=== PATIENT | female | born 1940 | race Caucasian/White ===

== ENCOUNTER 2020-04-04 08:57 | Outpatient (REF) | payer MEDICARE, SELFPAY ==
--- NOTE | 2020-04-04 09:28 | XR_ITS ---
EXAMINATION: XR KNEE, RIGHT CLINICAL INFORMATION: Pain COMPARISON: None TECHNIQUE: AP standing view of both knees and sunrise and lateral view of the right knee of the right knee. FINDINGS: The bones are osteopenic. There is a right knee replacement in satisfactory position. No fracture or dislocation is seen. There is a soft tissue ossification seen on the lateral view adjacent to the inferior and superior articular surfaces of the patella. There is no joint effusion. Standing AP view of the left knee demonstrates degenerative changes at the lateral femoral tibial joint. IMPRESSION: Osteopenia. Right knee replacement. Soft tissue ossifications seen on the lateral view adjacent to the inferior and superior articular surfaces of the patella.
== END 2020-04-04 08:58 | disposition home or self-care (01) ==
LOC: HO.XRAY 08:57
PROVIDERS: PCP Hospitalist; Visit Provider Orthopaedic Surgery
DX: T84.032A Mechanical loosening of internal right knee prosthetic joint, initial encounter (principal)
CPT/HCPCS: 73562; 99204

== ENCOUNTER → 2020-04-15 12:50 | Outpatient (BNVA) | payer MEDICARE, SELFPAY | PROVIDERS: PCP Hospitalist; Referring Provider Hospitalist; Visit Provider Orthopaedic Surgery | DX: Z76.89 Persons encountering health services in other specified circumstances (principal) ==

== ENCOUNTER → 2020-05-12 12:52 | Outpatient (BNVA) | payer MEDICARE, SELFPAY | PROVIDERS: PCP Hospitalist; Referring Provider Hospitalist; Visit Provider Orthopaedic Surgery | DX: T84.032D Mechanical loosening of internal right knee prosthetic joint, subsequent encounter (principal) | CPT/HCPCS: 20610; 99212 ==

== ENCOUNTER 2020-06-09 07:56 | Day surgery (SDC) | payer MEDICARE, SELFPAY ==
[2020-06-03 11:53] VITALS: BMI 25.0
--- NOTE | 2020-06-05 08:44 | MHC.SHP ---
Pre-Procedural Eval Section A The patient is an INPATIENT: No The History & Physical has been completed within 30 days and I have reviewed it.: Yes Section B Chief Complaint: Cataracts Left Eye Allergies: Allergies Allergy/AdvReac Type Severity Reaction Status Date / Time No Known Allergies Allergy Verified 05/12/20 13:37 Plan Diagnosis/Plan: Unchanged Patient has been examined and remains a candidate for the planned procedure
--- NOTE | 2020-06-06 13:34 | P.CONAN_ITS ---
Documented by User: Zenaida Lamar 06/06/20 13:35 HPI - Anesthesia Eval Consult details Narrative: 80yo F for Cataract Extraction PCP cleared No prev cataract [facility] Past Medical History Medical History (Updated 06/03/20 @ 11:49 by Loni Melissa) Mechanical loosening of internal right knee prosthetic joint Recent urinary tract infection Right knee pain Surgical History Surgical History (Updated 06/03/20 @ 11:49 by Loni Melissa) History of right knee surgery History of total right hip arthroplasty Social History Social History (Updated 06/03/20 @ 11:52 by Loni Melissa) Alcohol intake: current Alcohol intake frequency: a few times a month Alcohol type: wine Smoking Status: Former smoker Smoking Quit Date: 1962 Advance Directives: No Advance Directives Information Provided: No Advance Directives on File: No Meds Allergies Allergy/AdvReac Type Severity Reaction Status Date / Time No Known Allergies Allergy Verified 05/12/20 13:37 Home Medications Medication Instructions Recorded Confirmed Type acetaminophen 650 mg PO Q6H PRN 06/03/20 06/03/20 History sulfamethoxazole-trimethoprim 1 tab PO BID 06/03/20 06/03/20 History Exam Exam Date and Time: June 06, 2020 1334 Height,Weight and Vital Signs: Height 5 ft 6 in Weight 70.307 kg Assessment and Plan Assessment Anesthesia Assessment: Chart Reviewed Documented by User: Kate King 06/09/20 08:34 [facility] Past Medical History Medical History (Updated 06/03/20 @ 11:49 by Loni Melissa) Mechanical loosening of internal right knee prosthetic joint Recent urinary tract infection Right knee pain Surgical History Surgical History (Updated 06/03/20 @ 11:49 by Loni Melissa) History of right knee surgery History of total right hip arthroplasty Social History Social History (Updated 06/03/20 @ 11:52 by Loni Melissa) Alcohol intake: current Alcohol intake frequency: a few times a month Alcohol type: wine Smoking Status: Former smoker Smoking Quit Date: 1962 Advance Directives: No Advance Directives Information Provided: No Advance Directives on File: No Meds Allergies Allergy/AdvReac Type Severity Reaction Status Date / Time No Known Allergies Allergy Verified 05/12/20 13:37 Home Medications Medication Instructions Recorded Confirmed Type acetaminophen 650 mg PO Q6H PRN 06/03/20 06/03/20 History sulfamethoxazole-trimethoprim 1 tab PO BID 06/03/20 06/03/20 History Exam Airway Mallampati Class: I TM Dist: >3cm Neck ROM: Full Heart: RRR Lungs: CTa Bl Assessment and Plan Assessment Anesthesia Assessment: Anesthesia Plan Discussed and Chart Reviewed Final Anesthetic Review NPO: Yes ASA Class: II Final Preanesthetic Review: Meds/Allgs Chart Reviewed and Consent Obtained/Reviewed Patient Risk: Low Procedure Risk: Low Anesthetic Plan Anesthetic Plan: MAC: Disposition: Standard PACU
[2020-06-09 08:41] VITALS: BP 139/61; PULSE 74; RESP 16; TEMP 36.3; O2SAT 98
[2020-06-09] MEDS: Tetracaine HCl/PF 0.5% Oph Sol 4 ML DROPS 1 DROP EYE-LEFT (08:46)
[2020-06-09] MEDS: Tropicamide 1 % Ophth Sol 3 ML BTL 1 DROP EYE-LEFT ×3 (08:49→08:56)
[2020-06-09] MEDS: Lactated Ringers 500 ML 50 ML IV (08:50)
[2020-06-09] MEDS: Phenylephrine HCL 2.5% Oph SoL 2 ML BOTTLE 1 DROP EYE-LEFT ×3 (08:51→08:59)
[2020-06-09 09:59] VITALS: BP 154/64; PULSE 67; RESP 16; TEMP 36.3; O2SAT 99
--- NOTE | 2020-06-09 09:59 | HO.PNOPHT ---
Ophthalmology Procedure Procedure Date of Service: 06/09/20 Ophthalmology Viscoelastic: Healon Duet Dual Pack Pro Ophthalmology Lenses: TECALEXANDER [id number] (23) Procedure Notes: PREOPERATIVE DIAGNOSIS: Decreased visual acuity left eye secondary to cataract POSTOPERATIVE DIAGNOSIS: Same PROCEDURE: Left cataract extraction with intraocular lens insertion SURGEON: Jose Tanner M.D. ANESTHESIA: Topical/MAC ESTIMATED BLOOD LOSS: None COMPLICATIONS: None After obtaining informed consent, the patient was brought to the operation room suite and placed in the supine position. After adequate sedation per anesthesia, topical drops of Tetracaine were given to the left eye. The eye was then prepped and draped in the usual sterile fashion. The operating room microscope was then positioned over the operative eye and a lid speculum placed. A paracentesis was created. Viscoelastic was then instilled into the anterior chamber. A three plane incision was then created temporally, utilizing a 2.85 mm keratome. Capsulotomy forceps were then utilized to create a circular tear capsulotomy. Hydrodissection and hydrodelineation were carried out until adequate mobilization of the nucleus occurred. Phacoemulsification was then utilized to remove the dense central nucleus followed by removal of the cortical material utilizing the automated aspiration irrigation unit. Viscoat elastic was instilled into the posterior capsular bag followed by placement of a posterior chamber intraocular lens without difficulty. The residual Viscoat elastic was then removed utilizing the automated IA machine. The wound was check and found to be watertight. The patient tolerated the procedure well and the lid speculum was removed. Intracameral injection of Vigamox 0.1 mL followed by a subtenon injection of Kenalog-40 0.2 mL were administered. The patient will be seen in the a.m.
--- NOTE | 2020-06-09 10:01 | HO.POSTANES ---
Post Anesthesia Evaluation Post Anesthesia Evaluation Vital Signs: Vital Signs Temp Pulse Resp BP Pulse Ox 06/09/20 08:41 97.3 F 74 16 139/61 98 Anesthesia: Monitored Mental Status: Awake Pain Control: Satisfactory Nausea/Vomiting: None Hydration: Adequate Anesthesia-Related Issues: No Anes. Related Issues
== END 2020-06-09 10:20 | disposition home or self-care (01) ==
PROVIDERS: PCP Hospitalist; Visit Provider Ophthalmology
PROC: (CPT 66985; principal; 2020-06-09 09:40)
DX: H25.12 Age-related nuclear cataract, left eye (principal); H54.7 Unspecified visual loss; Z96.641 Presence of right artificial hip joint; Z79.899 Other long term (current) drug therapy; Z87.891 Personal history of nicotine dependence
CPT/HCPCS: 66984; J2250; J3010; J3300; V2632

== ENCOUNTER 2020-07-03 12:46 | Outpatient (REF) | payer MEDICARE, SELFPAY ==
[2020-07-03 14:52] LABS: C Reactive Protein 0.08 mg/dL (< or = 0.50)
[2020-07-03 15:43] LABS: Erythrocyte Sedimentation Rate 8 MM/HR (0-20)
== END 2020-07-03 12:47 | disposition home or self-care (01) ==
LOC: HO.10HDL 12:46
PROVIDERS: Visit Provider Orthopaedic Surgery
DX: Z01.818 Encounter for other preprocedural examination (principal); T84.032A Mechanical loosening of internal right knee prosthetic joint, initial encounter
CPT/HCPCS: 36415; 85652; 86140; 99212

== ENCOUNTER 2020-07-07 07:24 | Day surgery (SDC) | payer MEDICARE, SELFPAY ==
[2020-07-01 11:39] VITALS: BMI 25.8
--- NOTE | 2020-07-04 08:02 | MHC.SHP ---
Pre-Procedural Eval Section A The patient is an INPATIENT: No The History & Physical has been completed within 30 days and I have reviewed it.: Yes Section B Chief Complaint: cataract right eye Allergies: Allergies Allergy/AdvReac Type Severity Reaction Status Date / Time No Known Allergies Allergy Verified 06/30/20 09:42 Plan Diagnosis/Plan: Unchanged I have reviewed the history and physical and performed a pertinent physical examination on my patient. No changes have occurred unless specified.
--- NOTE | 2020-07-04 10:10 | HO.ANESPROP2 ---
Documented by User: Zenaida Lamar 07/04/20 10:12 HPI - Anesthesia Eval Consult details Narrative: 80yo F for Cataract Extraction IOL Insertion,right PCP cleared 1st eye 06/09/20 Fent50, Midaz 2 Pt for total joint this week [facility] Past Medical History Medical History Mechanical loosening of internal right knee prosthetic joint Recent urinary tract infection Right knee pain Surgical History Surgical History Cataract extraction status of left eye History of right knee surgery History of total right hip arthroplasty Social History Social History Alcohol intake: current Alcohol intake frequency: a few times a month Alcohol type: wine Smoking Status: Former smoker Smoking Quit Date: 57 years ago Second Hand Smoke Exposure: No Advance Directives: No Advance Directives Information Provided: No Advance Directives on File: No Meds Allergies Allergy/AdvReac Type Severity Reaction Status Date / Time No Known Allergies Allergy Verified 06/30/20 09:42 Home Medications Medication Instructions Recorded Confirmed Type acetaminophen 650 mg PO Q6H PRN 06/03/20 06/30/20 History Exam Exam Date and Time: July 04, 2020 1010 Height,Weight and Vital Signs: Height 5 ft 6 in Weight 72.575 kg Assessment and Plan Assessment Anesthesia Assessment: Chart Reviewed Documented by User: Ruby Shaikh 07/07/20 08:12 [facility] Past Medical History Medical History Mechanical loosening of internal right knee prosthetic joint Recent urinary tract infection Right knee pain Surgical History Surgical History Cataract extraction status of left eye History of right knee surgery History of total right hip arthroplasty Social History Social History Alcohol intake: current Alcohol intake frequency: a few times a month Alcohol type: wine Smoking Status: Former smoker Smoking Quit Date: 57 years ago Second Hand Smoke Exposure: No Advance Directives: No Advance Directives Information Provided: No Advance Directives on File: No Meds Allergies Allergy/AdvReac Type Severity Reaction Status Date / Time No Known Allergies Allergy Verified 06/30/20 09:42 Home Medications Medication Instructions Recorded Confirmed Type acetaminophen 650 mg PO Q6H PRN 06/03/20 06/30/20 History Exam Airway Mallampati Class: III TM Dist: >3cm Neck ROM: Full Loose/Missing/Broken Teeth: No Heart: RRR Lungs: CTA Assessment and Plan Assessment Anesthesia Assessment: Anesthesia Plan Discussed Final Anesthetic Review NPO: Yes ASA Class: II Final Preanesthetic Review: Meds/Allgs Chart Reviewed, Consent Obtained/Reviewed and Anes Risks/Benef Reviewed Patient Risk: Low Procedure Risk: Low Anesthetic Plan Anesthetic Plan: MAC: Disposition: Standard PACU
[2020-07-07 07:59] VITALS: BP 130/109; RESP 16; TEMP 36.3; O2SAT 99
[2020-07-07] MEDS: Lactated Ringers 500 ML 50 ML IV (08:26)
[2020-07-07] MEDS: Tetracaine HCl/PF 0.5% Oph Sol 4 ML DROPS 1 DROP EYE-RIGHT (08:27)
[2020-07-07] MEDS: Tropicamide 1 % Ophth Sol 3 ML BTL 1 DROP EYE-RIGHT ×3 (08:31→08:42)
[2020-07-07] MEDS: Phenylephrine HCL 2.5% Oph SoL 2 ML BOTTLE 1 DROP EYE-RIGHT ×3 (08:34→08:45)
[2020-07-07 09:43] VITALS: BP 166/65; PULSE 68; RESP 16; TEMP 36.1; O2SAT 98
--- NOTE | 2020-07-07 09:44 | HO.PNOPHT ---
Ophthalmology Procedure Procedure Date of Service: 07/07/20 Ophthalmology Viscoelastic: Healon Duet Dual Pack Pro Ophthalmology Lenses: TECNIS [id number] (22.5 Sulcus) Procedure Notes: PREOPERATIVE DIAGNOSIS: Decreased visual acuity right eye secondary to cataract POSTOPERATIVE DIAGNOSIS: Same PROCEDURE: Right cataract extraction with intraocular lens insertion & CTR SURGEON: Jose Tanner M.D. ANESTHESIA: Topical/MAC ESTIMATED BLOOD LOSS: None COMPLICATIONS: Zonular Dehisence After obtaining informed consent, the patient was brought to the operating room suite and placed in the supine position. After adequate sedation per anesthesia, topical drops of Tetracaine were given to the right eye. The eye was then prepped and draped in the usual sterile fashion. The operating room microscope was then positioned over the operative eye and a lid speculum placed. A paracentesis was created. Viscoelastic was then instilled into the anterior chamber. A three plane incision was then created temporally, utilizing a 2.85 mm keratome. Capsulotomy forceps were then utilized to create a circular tear capsulotomy. Hydrodissection and hydrodelineation were carried out until adequate mobilization of the nucleus occurred. Phacoemulsification was then utilized to remove the dense central nucleus, zonular dehiscence was nored reqiring placement of a Capsular Tension Ring. Upod completion of further Phacoemulsification to remove the nucleus removal of the cortical material utilizing the automated aspiration rrigation unit was completed .Viscoelastic was instilled into the posterior capsular bag followed by placement of a posterior chamber intraocular lens without difficulty into the sulcus The residual Viscoelastic was then removed utilizing the automated IA machine. The wound was checked and found to be watertight. The patient tolerated the procedure well and the lid speculum was removed.Miochol was instilled. Intracameral injection of Vigamox 0.1 mL followed by a subtenon injection of Kenalog-40 0.2 mL were administered. The patient will be seen in the a.m.
--- NOTE | 2020-07-08 14:54 | HO.POSTANES ---
Post Anesthesia Evaluation Post Anesthesia Evaluation Anesthesia: Monitored Mental Status: Awake Pain Control: Satisfactory Nausea/Vomiting: None Hydration: Adequate Anesthesia-Related Issues: No Anes. Related Issues
== END 2020-07-07 23:59 | disposition home or self-care (01) ==
LOC: HO.SSS 07:25 → HO.SSSA 10:56
PROVIDERS: PCP Hospitalist; Visit Provider Ophthalmology
PROC: (CPT 66985; principal; 2020-07-07 09:20)
DX: H25.11 Age-related nuclear cataract, right eye (principal); H27.8 Other specified disorders of lens; Z87.891 Personal history of nicotine dependence; Z96.641 Presence of right artificial hip joint
CPT/HCPCS: 66982; J3010; J3300; V2632

== ENCOUNTER 2020-07-22 08:17 | Day surgery (SDC) | payer MEDICARE, SELFPAY ==
--- NOTE | 2020-06-30 | ECG_ITS ---
Test Reason : CP Blood Pressure : / mmHG Vent. Rate : 072 BPM Atrial Rate : 072 BPM P-R Int : 156 ms QRS Dur : 130 ms QT Int : 448 ms P-R-T Axes : 070 023 100 degrees QTc Int : 490 ms Normal sinus rhythm Left bundle branch block Abnormal ECG No previous ECGs available Referred By: Zenaida Lamar Electronically Signed By:Mark Adams
[2020-06-30 10:03] VITALS: BP 168/78; PULSE 87; RESP 20; O2SAT 99; BMI 25.8
--- NOTE | 2020-06-30 10:17 | P.CONAN_ITS ---
HPI - Anesthesia Eval Consult details Narrative: 80yo F for R TKA Pending: PCP clearance Rescheduled d/t COVID policy [facility] Past Medical History Medical History Mechanical loosening of internal right knee prosthetic joint Recent urinary tract infection Right knee pain Family History Family history of problems with anesthesia: No Surgical History Surgical History Cataract extraction status of left eye History of right knee surgery History of total right hip arthroplasty History of Problems with Anesthesia: No Social History Social History Alcohol intake: current Alcohol intake frequency: a few times a month Alcohol type: wine Smoking Status: Former smoker Smoking Quit Date: 57 years ago Second Hand Smoke Exposure: No Advance Directives: No Advance Directives Information Provided: No Advance Directives on File: No Narrative Narrative: No recent illness No CP/SOB with >4 mets, only limited by knee pain. Meds Allergies Allergy/AdvReac Type Severity Reaction Status Date / Time No Known Allergies Allergy Verified 07/07/20 08:20 Home Medications Medication Instructions Recorded Confirmed Type acetaminophen 650 mg PO Q6H PRN 06/03/20 06/30/20 History Exam Exam Date and Time: June 30, 2020 1017 Height,Weight and Vital Signs: Height 5 ft 6 in Weight 72.575 kg Last Vital Signs Pulse 87 06/30/20 10:03 Resp 20 06/30/20 10:03 BP 168/78 H 06/30/20 10:03 Pulse Ox 99 06/30/20 10:03 Airway Mallampati Class: II TM Dist: >3cm Neck ROM: Full Loose/Missing/Broken Teeth: No Heart: RRR Lungs: CTAB Assessment and Plan Assessment Anesthesia Assessment: Anesthesia Plan Discussed and PAT Visit
[2020-06-30 11:53] LABS: MANUAL DIFF FLAG NO
[2020-06-30 11:55] LABS: Basophils Percent Auto 0.5 % (0-2); Eosinophils Absolute Auto 0.3 X10*3/uL (0.0-0.4); Hematocrit 37.1 % (37-47); Imm Gran Abs Auto 0.01 X10*3/uL (0.00-0.03); Imm Gran Pct Auto 0.2 % (0.0-0.4); Lymphocytes Absolute Auto 2.3 X10*3/uL (1.2-4.9); Mean Corpuscular HGB Conc 32.3 g/dl (31.0-35.0); Mean Corpuscular Volume 101.9 fL (80-98); Mean Platelet Volume 9.6 fL (9.4-12.3); Monocytes Absolute Auto 0.7 X10*3/uL (0.1-1.2); Monocytes Percent Auto 11.2 % (2-11); Neutrophils Absolute Auto 2.5 X10*3/uL (2.0-8.3); Neutrophils Percent Auto 43.1 % (45-73); Platelet Count 303 X10*3/uL (160-400); Red Blood Count 3.64 X10*6/uL (4.20-5.50); White Blood Count 5.8 X10*3/uL (4.8-10.8)
[2020-06-30 12:21] LABS: Anion Gap 12 (12-20); Blood Urea Nitrogen 18 mg/dL (9-16); Calcium 8.9 mg/dL (8.4-10.2); Carbon Dioxide 28 mmol/L (22-29); Chloride 100 mmol/L (96-108); Estimated Glomerular Filt Rate > 60; Glucose Random 102 mg/dL (60-115); Potassium 4.7 mmol/l (3.3-5.1); Sodium 135 mmol/L (135-145)
[2020-06-30 15:40] LABS: MRSA Nasal PCR NEGATIVE (Negative); SA Nasal PCR NEGATIVE (Negative)
--- NOTE | 2020-07-21 08:50 | HO.ANESPROP2 ---
Documented by User: Zenaida Ramosney 07/21/20 08:54 HPI - Anesthesia Eval Consult details Narrative: 80yo F for R TKA Seen in PAT 06/30/20 PCP cleared Rescheduled d/t COVID policy [facility] Past Medical History Medical History Mechanical loosening of internal right knee prosthetic joint Recent urinary tract infection Right knee pain Surgical History Surgical History Cataract extraction status of left eye History of right knee surgery History of total right hip arthroplasty Social History Social History Are you a primary career development manager to a significant other at home: No Do you presently have visiting nurse or other home services: No Alcohol intake: current Alcohol intake frequency: a few times a month Alcohol type: wine Smoking Status: Former smoker Smoking Quit Date: 57 yrs ago Patient Interested in Nicotine Replacement: No Second Hand Smoke Exposure: No Use of substances other than those prescribed or required for medical reasons: No Have you been hit, kicked, punched, or otherwise hurt by someone within the past year? If so, by whom?: No Bahai Healthcare Practices: Denominational Advance Directives: No Advance Directives Information Provided: No Advance Directives on File: No Recently lost weight without trying: No Meds Allergies Allergy/AdvReac Type Severity Reaction Status Date / Time No Known Allergies Allergy Verified 07/22/20 07:47 Home Medications Medication Instructions Recorded Confirmed Type acetaminophen 650 mg PO Q6H PRN 06/03/20 06/30/20 History Exam Exam Date and Time: July 21, 2020 0850 Height,Weight and Vital Signs: Height 5 ft 6 in Weight 72.575 kg Last Vital Signs Pulse 87 06/30/20 10:03 Resp 20 06/30/20 10:03 BP 168/78 H 06/30/20 10:03 Pulse Ox 99 06/30/20 10:03 Pertinent Lab Results Pertinent Lab Results: Laboratory Tests 06/30/20 06/30/20 06/30/20 11:15 11:15 11:15 WBC 5.8 RBC 3.64 L Hgb 12.0 Hct 37.1 MCV 101.9 H MCH 33.0 MCHC 32.3 RDW 12.0 Plt Count 303 MPV 9.6 Immature Gran % (Auto) 0.2 Neut % (Auto) 43.1 L Lymph % (Auto) 40.0 [place] % (Auto) 11.2 H Eos % (Auto) 5.0 H Baso % (Auto) 0.5 Lymph # (Auto) 2.3 [place] # (Auto) 0.7 Eos # (Auto) 0.3 Baso # (Auto) 0.0 Abs Immat Gran (auto) 0.01 Absolute Neuts (auto) 2.5 Absolute Nucleated RBC 0.000 Nucleated RBC % (auto) 0.0 Sodium 135 Potassium 4.7 Chloride 100 Carbon Dioxide 28 Anion Gap 12 BUN 18 H Creatinine 0.65 Estim Creat Clear Calc 68.0 Estimated GFR > 60 Random Glucose 102 Calcium 8.9 Nasal Screen MRSA (PCR) Nasal S. aureus Screen Nasal MRSA/S.aureus Interp Blood Type B Positive Antibody Screen NEGATIVE 06/30/20 Unknown WBC RBC Hgb Hct MCV MCH MCHC RDW Plt Count MPV Immature Gran % (Auto) Neut % (Auto) Lymph % (Auto) [place] % (Auto) Eos % (Auto) Baso % (Auto) Lymph # (Auto) [place] # (Auto) Eos # (Auto) Baso # (Auto) Abs Immat Gran (auto) Absolute Neuts (auto) Absolute Nucleated RBC Nucleated RBC % (auto) Sodium Potassium Chloride Carbon Dioxide Anion Gap BUN Creatinine Estim Creat Clear Calc Estimated GFR Random Glucose Calcium Nasal Screen MRSA (PCR) NEGATIVE Nasal S. aureus Screen NEGATIVE Nasal MRSA/S.aureus Interp SEE NOTE Blood Type Antibody Screen Narrative Narrative: EKG 06/30/20 Normal sinus rhythm Left bundle branch block Abnormal ECG No previous ECGs available Assessment and Plan Assessment Anesthesia Assessment: Chart Reviewed (Pt seen in PAT 06/30/20. Surgery rescheduled d/t hospital covid policy.) Documented by User: Alan Oneill MD 07/22/20 09:55 [facility] Past Medical History Medical History Mechanical loosening of internal right knee prosthetic joint Recent urinary tract infection Right knee pain Surgical History Surgical History Cataract extraction status of left eye History of right knee surgery History of total right hip arthroplasty Social History Social History Are you a primary career development manager to a significant other at home: No Do you presently have visiting nurse or other home services: No Alcohol intake: current Alcohol intake frequency: a few times a month Alcohol type: wine Smoking Status: Former smoker Smoking Quit Date: 57 yrs ago Patient Interested in Nicotine Replacement: No Second Hand Smoke Exposure: No Use of substances other than those prescribed or required for medical reasons: No Have you been hit, kicked, punched, or otherwise hurt by someone within the past year? If so, by whom?: No Bahai Healthcare Practices: Denominational Advance Directives: No Advance Directives Information Provided: No Advance Directives on File: No Recently lost weight without trying: No Meds Allergies Allergy/AdvReac Type Severity Reaction Status Date / Time No Known Allergies Allergy Verified 07/22/20 07:47 Home Medications Medication Instructions Recorded Confirmed Type acetaminophen 650 mg PO Q6H PRN 06/03/20 06/30/20 History Exam Airway Mallampati Class: II TM Dist: >3cm Neck ROM: Full Loose/Missing/Broken Teeth: No Heart: RRR Lungs: Nonlabored Assessment and Plan Assessment Anesthesia Assessment: Anesthesia Plan Discussed, PAT Visit and Chart Reviewed Final Anesthetic Review NPO: Yes ASA Class: III Final Preanesthetic Review: Meds/Allgs Chart Reviewed, Consent Obtained/Reviewed and Anes Risks/Benef Reviewed Patient Risk: Intermediate Procedure Risk: Intermediate Anesthetic Plan Anesthetic Plan: GA, MAC:, Spinal (Start with spinal iso bupi w/epi, convert to GA if procedure >180 mins; pt agrees) and Regional Block Disposition: Standard PACU
[2020-07-22] VITALS (13 sets, daily range): BP systolic 125–169; BP diastolic 48–71; PULSE 55–77; RESP 16–19; TEMP 36.2–36.9; O2SAT 96–100
[2020-07-22 08:13] LABS: COVID-19 Test Negative (Negative); IDNOW Serial# 9DD0AD1C
[2020-07-22] MEDS: Lactated Ringers 1,000 ML 100 ML IVCONT (08:44)
[2020-07-22] MEDS: ceFAZolin Sodium/Dextrose,Iso 2 GM/50 ML PIGGYBACK IV ×2 (08:44→16:50)
[2020-07-22] MEDS: Gabapentin 600 MG TABLET PO (08:44)
--- NOTE | 2020-07-22 09:46 | MHC.SHP ---
Pre-Procedural Eval Section A The patient is an INPATIENT: No Changes since office visit: Yes Patient answered all questions; No Cold of Flu in the past 2 weeks, No New Medical Problems and No Changes in Medication The History & Physical has been completed within 30 days and I have reviewed it.: Yes Section B Chief Complaint: s/p rt knee revision Allergies: Allergies Allergy/AdvReac Type Severity Reaction Status Date / Time No Known Allergies Allergy Verified 07/22/20 07:47 Plan I have reviewed the history and physical and performed a pertinent physical examination on my patient. No changes have occurred unless specified.
--- NOTE | 2020-07-22 12:42 | XR_ITS ---
EXAMINATION: XR KNEE, RIGHT CLINICAL INFORMATION: Revision right total knee COMPARISON: Right knee 04/04/2020 TECHNIQUE: 5 views of the right knee. FINDINGS: There is a resection of old right prosthesis with insertion of new total right knee prosthesis with the prosthetic components in satisfactory alignment. Immediate postop changes are visualized. There is gas and fluid in the subareolar bursa and surgical cristal along the anterior knee from surgery. XR/XR knee RT 2V IMPRESSION: Interval removal of all right knee prosthesis with insertion of new prosthesis with long stems along the distal femur and proximal tibia. Immediate postop changes visualized as described above.
--- NOTE | 2020-07-22 13:45 | P.BOP_ITS ---
Brief Operative Note Date of Service: 07/22/20 Pre-op diagnosis: right knee prosthetic loosening Post-op diagnosis: same Procedure: revision right knee arthroplsty Implants: styker triathalon revision system 5 femur with 5mm distal and posterior medial augments and 10 mm lateral distal and posterior 4 tibia with 5mm augments medial and lateral 19 mm TS poly Surgeon: Sanford Sy MD Anesthesia: regional and spinal Veterans' Counselor: Orlin Cummings Estimated blood loss (mL): 150 Tourniquet time (min): 120 IV fluids (mL): 1,000 Urine output (mL): 0 Pathology: none sent Condition: stable Disposition: PACU
[2020-07-22] MEDS: oxyCODONE HCl Immed Release 5 MG TABLET 2.5 MG PO (14:10)
[2020-07-22] MEDS: HYDROmorphone HCl 0.5 MG/0.5 ML SYRINGE 0.25 MG IVPUSH ×2 (14:43→23:15)
--- NOTE | 2020-07-22 15:32 | XR_ITS ---
EXAMINATION: XR KNEE, RIGHT CLINICAL INFORMATION: Total knee arthroplasty COMPARISON: Standing AP knees and right knee radiographs 04/04/2020. TECHNIQUE: 5 views of the right knee. FINDINGS: Patient status post knee arthroplasty with hinged prosthesis. The hardware is intact. There is no fracture or dislocation or destructive process. There is subcutaneous emphysema and overlying skin cristal as expected. XR/XR knee RT 2V IMPRESSION: Status post right knee arthroplasty.
[2020-07-22] MEDS: 0.9 % Sodium Chloride Flush 3 ML SYRINGE IVFLUSH ×2 (16:47→23:21)
[2020-07-22] MEDS: Dextrose 5 % and 0.45 % NaCl 1,000 ML 80 ML IVCONT (16:49)
--- NOTE | 2020-07-22 17:28 | PM.IMCN ---
History of Present Illness Data of Consult Service Date: 07/22/20 Requesting physician: Sanford Sy Primary Care Provider: Unknown Physician HPI Reason for consult: Medical management 80-year-old female with no significant past medical history has right knee surgeries in 2011 and but still has right knee pain so came to the hospital because of elective knee surgery. She says that she was walking with a cane and having balance problem because of the knee pain so decided to go for further surgery option. She is feeling better except she says that she has some knee pain. . Review of Systems Review of Systems: Denies any chest pain or shortness of breath or abdominal pain or fever or chills or nausea or vomiting or abdominal pain or weakness or numbness or any rash or urinary complaints. [facility] Medical History Mechanical loosening of internal right knee prosthetic joint Recent urinary tract infection Right knee pain Pertinent family history: She lives alone, denies any pertinent family history. Surgical History Cataract extraction status of left eye History of right knee surgery History of total right hip arthroplasty Social History Alcohol intake: current Alcohol intake frequency: a few times a month Alcohol type: wine Smoking Status: Former smoker Second Hand Smoke Exposure: No service: No Meds Allergies Allergy/AdvReac Type Severity Reaction Status Date / Time No Known Allergies Allergy Verified 07/22/20 07:47 Home Medications Medication Instructions Recorded Confirmed Type acetaminophen 650 mg PO Q6H PRN 06/03/20 06/30/20 History Physical Exam Vital Signs and Narrative: Vital Signs: Last Vital Signs Temp 98.5 F 07/22/20 15:00 Pulse 55 07/22/20 15:00 Resp 16 07/22/20 15:00 BP 125/48 L 07/22/20 15:00 Pulse Ox 96 07/22/20 15:00 Body Mass Index 25.8 Physical exam: Constitutional: Not in acute distress Cvs: [id number], [id number] , no murmur res: clear to auscultation ,no rhonchii or wheezing abd: no rebound or guarding ,nt, bs present. ext pulses present , no cyanosis neuro: axo3 , nonfocal. Results Labs CBC and Chem 7: 07/23/20 06:15 07/23/20 06:15 Labs: Laboratory Results - last 24 hr 07/22/20 07/22/20 07:35 07:50 COVID-19 ([facility]) Negative COVID-19 Clin Com See Note Blood Type B Positive Antibody Screen NEGATIVE Imaging Radiologist's Impressions: Impressions Knee X-Ray 07/22/20 12:42 IMPRESSION: Interval removal of all right knee prosthesis with insertion of new prosthesis with long stems along the distal femur and proximal tibia. Immediate postop changes visualized as described above. Knee X-Ray 07/22/20 15:32 IMPRESSION: Status post right knee arthroplasty. Assessment and Plan (1) Mechanical loosening of internal right knee prosthetic joint: Status: Acute (2) Right knee pain: Status: Acute 1. Mechanical loosening of right knee prosthetic joint: Status post surgery day1 Management as per primary team 2. Alcohol use: Will add thiamine folic acid, CIWA 3. EKG abnormal: Lbbb: Patient is totally in symptomatic denies any chest pain or shortness of breath or weakness Will add echo for the morning.
[2020-07-22] MEDS: Thiamine HCL 100 MG TABLET PO (17:53)
[2020-07-22] MEDS: Folic Acid 1 MG TABLET PO (17:53)
--- NOTE | 2020-07-22 18:13 | OP_ITS ---
SURGEON: Sanford Sy MD INDICATIONS: 80-year-old active woman with ongoing right knee pain with evidence of mechanical loosening and no evidence of infection. She was consented to undergo revision arthroplasty. PREOPERATIVE DIAGNOSIS: Mechanical loosening, right prosthetic knee. POSTOPERATIVE DIAGNOSIS: Mechanical loosening, right prosthetic knee. PROCEDURE PERFORMED: Revision right knee arthroplasty. ESTIMATED BLOOD LOSS: 150 mL. COMPLICATIONS: None known. ANESTHESIA: Regional and spinal. ASSISTANTS: 1. RADHA Alex. 2. Pranay Brewster. SPECIMENS: FLUIDS: 1 L. PROCEDURE IN DETAIL: The patient was brought to the operating room, placed in the supine position and prepped and draped in standard sterile fashion. Time-out was called to identify proper site, proper procedure, proper surgeon. IV antibiotics per weight was administered. I began by exsanguinating the limb and insufflating tourniquet to 200 mmHg. I then made a standard midline incision down the retinaculum and performed a medial parapatellar arthrotomy. She had a very stiff retinaculum and care was taken to avoid avulsion of the tibial tubercle. She had ossification in the patellar tendon and also medially along the medial tibial plateau. These were excised and I piecemeal removed scar tissue to slowly flex up the knee and translate the patella laterally. Once I was able to do this, I examined the tibia, this appeared to have micromotion, but was not grossly loose; and the femur, there was no evidence of loosening, but there was no way to revise the tibia in this situation without removing the femur and so I used the flexible osteotome to circumferentially loosen up the cement bone interface under the prosthesis and was able to do this with minimal bone loss. The most prominent bone loss was posterolateral. Prior to this, I removed the polyethylene. I then was able to access the tibia and used a small flexible osteotome to slowly remove this and was able to do so with relatively minor bone loss most prominent being posteromedial and a small rent in the anterolateral cortex with no cavitary defects and good bone stock. I irrigated copiously both the femur and the tibia, removed all excess bone. I then reamed the tibia to a depth of 150 mm and made a clean-up cut for 5 mm augments. I then sized a size 4 tibia and provisionally placed this and then turned my attention to the femur. I reamed to a 17, depth of 150 mm and then placed my distal femoral cutting guide and lying up with the medial epicondyle, made my distal cut with 10 mm augment laterally and 5 medially. I then placed my chamfer cutting guide and made my anterior chamfer cut, both of which were took minimal to no bone. I then made my posterior medial cut, which there was again about 10 mm augment required and a 5 mm posteriorly on the lateral side. Once this was done, I placed my box and made my box cut. I placed my provisional femur with the augments and was happy with the stability and tracking using a 16 mm insert. At this point, I took a flat plate to assess my height and to verify that the joint line was not raised. I was happy with the radiographs and therefore I prepared my tibia and femur by copious irrigation and then put my implants together on the back table while 2 bags of Palacos bone cement was max. I then cemented in the femur and tibia in standard fashion while applying axial compression. Once the cement was dry, I trialed a 16 and 19. I was happiest with the 19. My final 19 TS insert was placed. Of note, I assessed the patella. There was prominent parapatellar bone ectopic that had grown about the lateral 3rd of the patella. This was removed and a small lateral release was performed. Again, I took the knee through range of motion I was happy with the extension, flexion, stability and tracking. I then copiously irrigated for 3 minutes with iodine and placed my local TXA and performed a layered closure with cristal on the skin. The patient was then awakened from sedation and brought to recovery room in stable condition. There were no known complications. GRAFT OR IMPLANTS: Manpreet Triathlon Revision System with 5 femur with 5 mm medial, distal, and posterior augments and 10 mm distal and posterior lateral augments with a 4 tibia with 5 mm medial and lateral augments, and a 19 mm poly, 2 bags of Palacos bone cement. Sanford Sy MD NE/MODL / [id number]
[2020-07-22] MEDS: Celecoxib 200 MG CAPSULE PO (20:21)
--- NOTE | 2020-07-22 22:09 | PC.NURSE ---
patient bladder scanned for 527 ml, straight cath placed at 2145, emptied straight cath for 600 ml.
[2020-07-23] VITALS (8 sets, daily range): BP systolic 145–186; BP diastolic 66–82; PULSE 50–86; RESP 17–19; TEMP 36.6–37.6; O2SAT 94–98
[2020-07-23] MEDS: Dextrose 5 % and 0.45 % NaCl 1,000 ML 80 ML IVCONT (04:23)
[2020-07-23] MEDS: HYDROmorphone HCl 0.5 MG/0.5 ML SYRINGE 0.25 MG IVPUSH ×3 (04:25→19:32)
[2020-07-23 06:26] LABS: MANUAL DIFF FLAG NO
--- NOTE | 2020-07-23 06:35 | PC.NURSE ---
bladder scanned pt at 0600 for 403 ml, straight cath'd pt for 500 ml at 0630.
[2020-07-23 06:53] LABS: Basophils Percent Auto 0.3 % (0-2); Eosinophils Absolute Auto 0.1 X10*3/uL (0.0-0.4); Eosinophils Percent Auto 1.6 % (0-4); Hematocrit 31.2 % (37-47); Hemoglobin 10.2 g/dl (12.0-16.0); Imm Gran Abs Auto 0.03 X10*3/uL (0.00-0.03); Imm Gran Pct Auto 0.4 % (0.0-0.4); Lymphocytes Absolute Auto 1.5 X10*3/uL (1.2-4.9); Lymphocytes Percent Auto 19.1 % (20-40); Mean Corpuscular HGB Conc 32.7 g/dl (31.0-35.0); Mean Corpuscular Hemoglobin 33.3 pg (27.0-33.0); Mean Platelet Volume 10.2 fL (9.4-12.3); Monocytes Absolute Auto 0.8 X10*3/uL (0.1-1.2); Monocytes Percent Auto 10.3 % (2-11); Neutrophils Absolute Auto 5.3 X10*3/uL (2.0-8.3); Neutrophils Percent Auto 68.3 % (45-73); Platelet Count 235 X10*3/uL (160-400); Red Blood Count 3.06 X10*6/uL (4.20-5.50); Red Cell Distribution Width 12.2 % (11.0-16.0); White Blood Count 7.7 X10*3/uL (4.8-10.8)
[2020-07-23 07:08] LABS: Anion Gap 14 (12-20); Blood Urea Nitrogen 24 mg/dL (9-16); Calcium 7.9 mg/dL (8.4-10.2); Carbon Dioxide 23 mmol/L (22-29); Chloride 98 mmol/L (96-108); Creatinine Clr Calc Pharmacy 80.4; Estimated Glomerular Filt Rate > 60; Glucose Fasting 138 mg/dL (60-99); Potassium 4.1 mmol/l (3.3-5.1); Sodium 131 mmol/L (135-145)
[2020-07-23] MEDS: oxyCODONE HCl Immed Release 5 MG TABLET PO (07:49)
[2020-07-23] MEDS: Thiamine HCL 100 MG TABLET PO (07:49)
[2020-07-23] MEDS: Folic Acid 1 MG TABLET PO (07:49)
[2020-07-23] MEDS: Celecoxib 200 MG CAPSULE PO ×2 (07:49→21:15)
[2020-07-23] MEDS: ondansetron HCL 4 MG/2 ML VIAL IVPUSH (08:07)
--- NOTE | 2020-07-23 09:11 | HO.POSTANES ---
Post Anesthesia Evaluation Post Anesthesia Evaluation Vital Signs: Vital Signs Temp Pulse Resp BP Pulse Ox 07/23/20 07:58 99.2 F 50 17 186/80 H 95 07/23/20 03:16 98.2 F 84 18 150/66 H 97 07/22/20 23:10 97.9 F 73 18 149/69 H 98 Anesthesia: Spinal and Nerve Block Mental Status: Awake Pain Control: Satisfactory (Uncomfortable.) Nausea/Vomiting: Mild (Started today after received pain meds) Hydration: Adequate Anesthesia-Related Issues: No Anes. Related Issues
--- NOTE | 2020-07-23 09:43 | PM.PNORT ---
Subjective Subjective Date of Service: 07/23/20 Principal diagnosis: S/p Revision RT TKA Interval history: Pod 1 s/p RT TKA She had some nausea with taking pain medication, has not been out of bed yet, She denies, sob, chest pain and dizziness. Physical Exam Vital Signs: Vital Signs: Last Vital Signs Temp 99.2 F 07/23/20 07:58 Pulse 50 07/23/20 07:58 Resp 17 07/23/20 07:58 BP 186/80 H 07/23/20 07:58 Pulse Ox 95 07/23/20 07:58 Body Mass Index 25.8 Extrem: Other: Right knee dressing intact, no erythema, mild edema, sensation intact pulses present Progress Note: A&P Assessment and plan (1) Status post revision of total replacement of right knee: Status: Acute Assessment and Plan: Continue pain mgmnt Begin asa for dvt ppx begin PT for revision right TKA Dispo planning-Pending PT eval, pain mgmnt Fall Risk Details Current Medications: Current Medications Generic Name Dose Route Start Last Admin Trade Name Jose Raulq PRN Reason Stop Dose Admin Acetaminophen 650 mg 07/22/20 15:32 Acetaminophen 325 Mg Tablet PO Q6H PRN Pain, Mild (Pain Scale 1-3) Aspirin 325 mg 07/23/20 13:00 Aspirin 325 Mg Tablet PO BID BRENDAN Celecoxib 200 mg 07/22/20 21:00 07/23/20 07:49 Celecoxib 200 Mg Capsule PO 200 mg BID BRENDAN Administration Folic Acid 1 mg 07/22/20 17:45 07/23/20 07:49 Folic Acid 1 Mg Tablet PO 1 mg DAILY BRENDAN Administration Hydromorphone HCl 0.25 mg 07/22/20 14:39 07/22/20 14:43 Hydromorphone Hcl 0.5 Mg/0.5 Ml Syringe IVPUSH 0.25 mg Q5M PRN Administration Pain, Severe (Pain Scale 7-10) Hydromorphone HCl 0.25 mg 07/22/20 15:32 07/23/20 04:25 Hydromorphone Hcl 0.5 Mg/0.5 Ml Syringe IVPUSH 0.25 mg Q4H PRN Administration Pain, Severe (Pain Scale 7-10) Naloxone HCl 0.2 mg 07/22/20 15:32 Naloxone Hcl 0.4 Mg/Ml Vial IVPUSH Q2M PRN Excessive sedation or RR < 8 Ondansetron HCl 4 mg 07/22/20 14:02 07/23/20 08:07 Ondansetron Hcl 4 Mg/2 Ml Vial IVPUSH 4 mg ONCE PRN Administration Nausea and Vomiting Ondansetron HCl 4 mg 07/22/20 15:32 Ondansetron Hcl 4 Mg/2 Ml Vial IVPUSH Q8H PRN Nausea and Vomiting Oxycodone HCl 5 mg 07/22/20 15:32 07/23/20 07:49 Oxycodone Hcl Immed Release 5 Mg Tablet PO 5 mg Q4H PRN Administration Pain, Moderate (Pain Scale 4-6 Senna 17.2 mg 07/22/20 15:32 Sennosides 8.6 Mg Tablet PO BEDTIME PRN Constipation Sodium Chloride 3 ml 07/22/20 16:00 07/23/20 07:50 0.9 % Sodium Chloride Flush 3 Ml Syringe IVFLUSH Not Given QSHIFT BRENDAN Thiamine HCl 100 mg 07/22/20 17:45 07/23/20 07:49 Thiamine Hcl 100 Mg Tablet PO 100 mg DAILY BRENDAN Administration Time Spent With Patient Time: Total time spent is greater than 50% in coordination of care (as documented) at patient's floor/unit and/or counseling patient: Time with patient: less than 15 minutes
--- NOTE | 2020-07-23 11:32 | MHC.CM.PN ---
met with pt who had mow prior to admission according to pt she has self arranged a bed at [facility] when she is dcd from [facility] [place] ,she expects dc to be 07/25 allscript referral made
[2020-07-23] MEDS: Aspirin 325 MG TABLET PO ×2 (12:15→21:15)
--- NOTE | 2020-07-23 13:48 | PC.NURSE ---
Pt voided 100mL on commode and post void bladder scan for 127mL
--- NOTE | 2020-07-23 14:00 | CA_ITS ---
Transthoracic Echocardiogram Patient (Last, First, Middle): Loni Jaimes M Gender: Female Date of : 1940 Age: 80 Procedure Date: 07/23/2020 Procedure Type: Transthoracic Echocardiogram Location: S3E Height: 167.64 cm Weight: 72.58 kg BSA: 1.82 m2 Heart Rate: bpm BP: 150 / 66 mmHg Tissue Recovery Technician: DEMARCUS Nunez MD: Vaughn Isaacs MD Symptoms: LBBB Study Quality: Fair Conclusions: - The left ventricular systolic function is mild to moderately decreased. The visually estimated ejection fraction is between 35-40%. - E/E prime ratio is >15, consistent with elevated filling pressures. - Normal right ventricular cavity size and systolic function. - There is mild dilatation of the ascending aorta. Findings Left Ventricle Normal left ventricular cavity size. There is mildly increased left ventricular wall thickness. The left ventricular systolic function is mild to moderately decreased. The visually estimated ejection fraction is between 35-40%. There is mild global hypokinesis. Abnormal diastolic function is noted. Spectral Doppler is indicative of an impaired relaxation filling pattern. E/E prime ratio is >15, consistent with elevated filling pressures. Right Ventricle Normal right ventricular cavity size and systolic function. Atria Both atria are normal in size. Aortic Valve Normal aortic valve structure and function. There is no aortic valve stenosis. There is no aortic valve regurgitation. Mitral Valve The mitral valve appears normal. There is mild mitral valve regurgitation. There is no mitral valve stenosis. Pulmonic Valve Normal pulmonic valve structure and function. There is no pulmonic valve regurgitation. Tricuspid Valve Normal tricuspid valve structure and function. There is trace tricuspid valve regurgitation. Normal right atrial pressure. There is no evidence of pulmonary hypertension. Great Vessels There is mild dilatation of the ascending aorta. The visualized portions of the pulmonary artery and branches are normal. Venous The inferior vena cava is normal in size and collapses greater than 50% with inspiration. Pericardium/Pleural There is no evidence of pericardial effusion. Prior Study Comparison No prior study available for comparison. Measurements 2D Linear Measurements IVSd: 0.92 0.6-0.9/0.6-1.0 cm LVIDd: 4.39 3.9-5.3/4.2-5.9 cm LVIDd Index: 2.41 2.4-3.2/2.2-3.1 cm/m2 LVIDs: 2.98 2.0-3.6 cm LVPWd: 0.98 0.7-1.1 cm Ao Root: 3.50 2.1-3.5 cm LA Diam: 3.00 2.7-3.8/3.0-4.0 cm LAIDs Index: 1.65 1.5-2.3 cm/m2 LV Mass: 170.82 67-162/88-224 g LV Mass Index: 93.86 43-95/49-115 g/m2 LVOT Diam: 2.10 3.0+(-)1.3 cm Mitral Valve MV Pk E: 0.93 MV PK A: 1.13 MV Decel Time: 250.00 E/A: 0.80 E'Lateral: 4.90 E'Medial: 5.55 E/E' Med: 16.80 E/E' Lat: 19.00 PHT: 73.00 MVA PHT: 3.01 Decel Henry: 3.72 Aortic Valve AoV Pk Jeremy: 1.28 AoV Mn Jeremy: 0.93 AoV VTI: 0.27 AoV Pk Grad: 7.00 Aov Mn Grad: 4.00 EDEN Cont.VTI: 2.65 LVOT LVOT Pk Jeremy: 0.87 LVOT Mn Jeremy: 0.63 LVOT VTI: 0.21 LVOT Pk Grad: 3.00 LVOT Mn Grad: 2.00 LVOT Diam: 2.10 LVOT Area: 3.46 Diastolic Function MV Pk E: 0.93 MV Pk A: 1.13 E/A: 0.80 E'Medial: 5.55 E/E' Med: 16.80 E' Laterial: 4.90 E/E' Lat: 19.00 Tricuspid Valve TR Pk Jeremy: 2.21 TR Pk Grad: 20.00 RA Press: 3.00 RVSP: 23.00 Great Vessels Aorta Ao Root-2D: 3.50 2.0-3.7 cm Ao Asc: 3.40 2.1-3.4 cm Updated in Other Vendor System with Status of Final Mark Adams MD electronically signed on 07/23/2020 7:02:19 PM with status of Final
--- NOTE | 2020-07-23 15:25 | MHC.CM.PN ---
nurse palliative care nurse practitioner note RECEIVED A CALL FROM PATIENTS DAUGHTER ESTEVAN PIZARRO [phone] SHE WAS REQUESTING THAT WE MAKE A REFERRAL TO [facility] (SHE CALLED AND SPOKE WITH THE LIAISON HILDA AND WAS TOLD SHE DID NOT RECEIVE A REFFERAL FROM US, I CHECKED AND IT WAS SENT AT 11;15 THIS MORNING AND REPORTED THAT I WOULD RE-SEND IT AGAIN. 3;54 STILL NO RESPONSE FROM [facility] , I TRIED TO CALL HILDA THE LIAISON TWICE AND THERE WAS NO ANSWER , I CALLED BACK TO PATIENTS DAUGHTER AND REPORTED THAT WE WILL RECHECK IN THE MRNING
[2020-07-23] MEDS: 0.9 % Sodium Chloride Flush 3 ML SYRINGE IVFLUSH (17:03)
--- NOTE | 2020-07-23 17:50 | HO.PM.IMPN ---
Subjective Subjective Date of Service: 07/23/20 Interval History: ? lbbb ch Review of Systems Denies any chest pain or shortness of breath or abdominal pain or fever or chills, still has right knee pain. Physical Exam Vital Signs: Vital Signs: Last Vital Signs Temp 97.8 F 07/23/20 15:37 Pulse 73 07/23/20 15:37 Resp 17 07/23/20 15:37 BP 168/74 H 07/23/20 15:37 Pulse Ox 94 07/23/20 15:37 Body Mass Index 25.8 Physical exam: Cvs: rrr, [id number] , no murmur res: clear to auscultation ,no rhonchii or wheezing abd: no rebound or guarding ,nt, bs present. ext pulses present , no cyanosis neuro: axo3 , nonfocal. Objective Data Current Medications Generic Name Dose Route Start Last Admin Trade Name Freq PRN Reason Stop Dose Admin Acetaminophen 650 mg 07/22/20 15:32 Acetaminophen 325 Mg Tablet PO Q6H PRN Pain, Mild (Pain Scale 1-3) Aspirin 325 mg 07/23/20 13:00 07/23/20 12:15 Aspirin 325 Mg Tablet PO 325 mg BID BRENDAN Administration Celecoxib 200 mg 07/22/20 21:00 07/23/20 07:49 Celecoxib 200 Mg Capsule PO 200 mg BID BRENDAN Administration Folic Acid 1 mg 07/22/20 17:45 07/23/20 07:49 Folic Acid 1 Mg Tablet PO 1 mg DAILY BRENDAN Administration Hydromorphone HCl 0.25 mg 07/22/20 14:39 07/22/20 14:43 Hydromorphone Hcl 0.5 Mg/0.5 Ml Syringe IVPUSH 0.25 mg Q5M PRN Administration Pain, Severe (Pain Scale 7-10) Hydromorphone HCl 0.25 mg 07/22/20 15:32 07/23/20 12:15 Hydromorphone Hcl 0.5 Mg/0.5 Ml Syringe IVPUSH 0.25 mg Q4H PRN Administration Pain, Severe (Pain Scale 7-10) Naloxone HCl 0.2 mg 07/22/20 15:32 Naloxone Hcl 0.4 Mg/Ml Vial IVPUSH Q2M PRN Excessive sedation or RR < 8 Ondansetron HCl 4 mg 07/22/20 14:02 07/23/20 08:07 Ondansetron Hcl 4 Mg/2 Ml Vial IVPUSH 4 mg ONCE PRN Administration Nausea and Vomiting Ondansetron HCl 4 mg 07/22/20 15:32 Ondansetron Hcl 4 Mg/2 Ml Vial IVPUSH Q8H PRN Nausea and Vomiting Oxycodone HCl 10 mg 07/23/20 10:08 Oxycodone Hcl Immed Release 5 Mg Tablet PO Q6H PRN Pain, Moderate (Pain Scale 4-6 Senna 17.2 mg 07/22/20 15:32 Sennosides 8.6 Mg Tablet PO BEDTIME PRN Constipation Sodium Chloride 3 ml 07/22/20 16:00 07/23/20 17:03 0.9 % Sodium Chloride Flush 3 Ml Syringe IVFLUSH 3 ml QSHIFT BRENDAN Administration Thiamine HCl 100 mg 07/22/20 17:45 07/23/20 07:49 Thiamine Hcl 100 Mg Tablet PO 100 mg DAILY BRENDAN Administration Labs CBC & Chem 7: 07/23/20 06:15 07/23/20 06:15 Assessment and Plan (1) LBBB (left bundle branch block): Status: Acute (2) Alcohol abuse: Status: Acute Assessment and Plan: 1. Mechanical loosening of right knee prosthetic joint: Status post surgery day2 postop anemia Management as per primary team 2. Alcohol use: Will add thiamine folic acid, CIWA 3. EKG abnormal: Lbbb: Patient is totally in symptomatic denies any chest pain or shortness of breath or weakness ECHO Pending. 4. Mild hyponatremia probably related to hyper include, we will DC d51/2 ns.
[2020-07-23] MEDS: Omeprazole 20 MG CAPSULE.DR PO (21:16)
[2020-07-24] VITALS (9 sets, daily range): BP systolic 111–165; BP diastolic 45–79; PULSE 65–91; RESP 18–20; TEMP 36.8–37.2; O2SAT 93–96
[2020-07-24] MEDS: HYDROmorphone HCl 0.5 MG/0.5 ML SYRINGE 0.25 MG IVPUSH (01:00)
[2020-07-24] MEDS: 0.9 % Sodium Chloride Flush 3 ML SYRINGE IVFLUSH ×4 (01:01→21:08)
[2020-07-24 06:27] LABS: MANUAL DIFF FLAG NO
[2020-07-24 06:43] LABS: Basophils Percent Auto 0.3 % (0-2); Eosinophils Absolute Auto 0.1 X10*3/uL (0.0-0.4); Eosinophils Percent Auto 1.5 % (0-4); Hematocrit 29.3 % (37-47); Hemoglobin 9.9 g/dl (12.0-16.0); Imm Gran Abs Auto 0.02 X10*3/uL (0.00-0.03); Imm Gran Pct Auto 0.3 % (0.0-0.4); Lymphocytes Absolute Auto 1.7 X10*3/uL (1.2-4.9); Lymphocytes Percent Auto 23.7 % (20-40); Mean Corpuscular HGB Conc 33.8 g/dl (31.0-35.0); Mean Corpuscular Hemoglobin 34.3 pg (27.0-33.0); Mean Corpuscular Volume 101.4 fL (80-98); Mean Platelet Volume 9.9 fL (9.4-12.3); Monocytes Absolute Auto 0.9 X10*3/uL (0.1-1.2); Monocytes Percent Auto 12.6 % (2-11); Neutrophils Absolute Auto 4.5 X10*3/uL (2.0-8.3); Neutrophils Percent Auto 61.6 % (45-73); Platelet Count 202 X10*3/uL (160-400); Red Blood Count 2.89 X10*6/uL (4.20-5.50); White Blood Count 7.3 X10*3/uL (4.8-10.8)
[2020-07-24 06:59] LABS: Anion Gap 17 (12-20); Blood Urea Nitrogen 13 mg/dL (9-16); Carbon Dioxide 22 mmol/L (22-29); Chloride 96 mmol/L (96-108); Creatinine Clr Calc Pharmacy 83.5; Estimated Glomerular Filt Rate > 60; Glucose Fasting 116 mg/dL (60-99); Potassium 4.4 mmol/l (3.3-5.1); Sodium 131 mmol/L (135-145)
--- NOTE | 2020-07-24 07:43 | HO.PM.IMPN ---
Subjective Subjective Date of Service: 07/24/20 Interval History: LBBB Review of Systems Patient denies any chest pain or shortness of breath or abdominal pain or fever or any weakness or numbness. Physical Exam Vital Signs: Vital Signs: Last Vital Signs Temp 98.9 F 07/24/20 03:34 Pulse 82 07/24/20 03:34 Resp 18 07/24/20 03:34 BP 140/62 H 07/24/20 03:34 Pulse Ox 94 07/24/20 03:34 Body Mass Index 25.8 Physical exam: Constitutional: Not in acute distress Cvs: rrr, [id number] , no murmur res: clear to auscultation ,no rhonchii or wheezing abd: no rebound or guarding ,nt, bs present. ext pulses present , no cyanosis neuro: axo3 , nonfocal. Objective Data Current Medications Generic Name Dose Route Start Last Admin Trade Name Freq PRN Reason Stop Dose Admin Acetaminophen 650 mg 07/22/20 15:32 Acetaminophen 325 Mg Tablet PO Q6H PRN Pain, Mild (Pain Scale 1-3) Aspirin 325 mg 07/23/20 13:00 07/23/20 21:15 Aspirin 325 Mg Tablet PO 325 mg BID BRENDAN Administration Celecoxib 200 mg 07/22/20 21:00 07/23/20 21:15 Celecoxib 200 Mg Capsule PO 200 mg BID BRENDAN Administration Folic Acid 1 mg 07/22/20 17:45 07/23/20 07:49 Folic Acid 1 Mg Tablet PO 1 mg DAILY BRENDAN Administration Hydromorphone HCl 0.25 mg 07/22/20 14:39 07/22/20 14:43 Hydromorphone Hcl 0.5 Mg/0.5 Ml Syringe IVPUSH 0.25 mg Q5M PRN Administration Pain, Severe (Pain Scale 7-10) Hydromorphone HCl 0.25 mg 07/22/20 15:32 07/24/20 01:00 Hydromorphone Hcl 0.5 Mg/0.5 Ml Syringe IVPUSH 0.25 mg Q4H PRN Administration Pain, Severe (Pain Scale 7-10) Naloxone HCl 0.2 mg 07/22/20 15:32 Naloxone Hcl 0.4 Mg/Ml Vial IVPUSH Q2M PRN Excessive sedation or RR < 8 Omeprazole 20 mg 07/23/20 21:00 07/23/20 21:16 Omeprazole 20 Mg Capsule.Dr PO 20 mg BEDTIME BRENDAN Administration Ondansetron HCl 4 mg 07/22/20 14:02 07/23/20 08:07 Ondansetron Hcl 4 Mg/2 Ml Vial IVPUSH 4 mg ONCE PRN Administration Nausea and Vomiting Ondansetron HCl 4 mg 07/22/20 15:32 Ondansetron Hcl 4 Mg/2 Ml Vial IVPUSH Q8H PRN Nausea and Vomiting Oxycodone HCl 10 mg 07/23/20 10:08 Oxycodone Hcl Immed Release 5 Mg Tablet PO Q6H PRN Pain, Moderate (Pain Scale 4-6 Senna 17.2 mg 07/22/20 15:32 Sennosides 8.6 Mg Tablet PO BEDTIME PRN Constipation Sodium Chloride 3 ml 07/22/20 16:00 07/24/20 01:01 0.9 % Sodium Chloride Flush 3 Ml Syringe IVFLUSH 3 ml QSHIFT BRENDAN Administration Thiamine HCl 100 mg 07/22/20 17:45 07/23/20 07:49 Thiamine Hcl 100 Mg Tablet PO 100 mg DAILY BRENDAN Administration Labs CBC & Chem 7: 07/24/20 05:57 07/24/20 05:57 Assessment and Plan (1) Alcohol abuse: Status: Acute (2) LBBB (left bundle branch block): Status: Acute Assessment and Plan: 1. Mechanical loosening of right knee prosthetic joint: Status post surgery day3 postop anemia Management as per primary team 2. Alcohol use: Will add thiamine folic acid, CIWA Swat evaluation 3. EKG abnormal: Lbbb: Patient is totally in symptomatic denies any chest pain or shortness of breath or weakness ECHO : ef 35-40% ,There is mild global hypokinesis. Abnormal diastolic function is noted. Cardio evaluation noted-will add Coreg since patient is asymptomatic but has LV dysfunction on the echo. Patient is to follow up outpatient with PCP and Cardiology, cardio may arrange their own appointment outpatient. 4. Mild hyponatremia probably related to hyper include, we will DC d51/2 ns.
[2020-07-24] MEDS: Aspirin 325 MG TABLET PO ×2 (09:06→20:50)
[2020-07-24] MEDS: Folic Acid 1 MG TABLET PO (09:07)
[2020-07-24] MEDS: Thiamine HCL 100 MG TABLET PO (09:07)
[2020-07-24] MEDS: Celecoxib 200 MG CAPSULE PO ×2 (09:07→20:50)
[2020-07-24] MEDS: oxyCODONE HCl Immed Release 5 MG TABLET 10 MG PO (09:08)
--- NOTE | 2020-07-24 09:48 | PM.CNCAR ---
History of Present Illness History of Present Illness Date of Service: 07/24/20 Requesting physician: Vaughn Isaacs Chief complaint: Cardiomyopathy Narrative: Pleasant 80-year-old female who came for right knee surgery. She was noticed to have left bundle-branch block on EKG. She has no symptoms chest discomfort shortness of breath. No clinical heart failure. She underwent echocardiography which is showing EF of 35-40% with global hypokinesis. On discussion with her she has been somewhat limited due to the knee and has slowed down. She denies chest pain or shortness of breath in particular. No orthopnea or PND. No dizziness or syncope in the past. No family history of coronary disease or any heart disease. She is a former smoker. She drinks approximately 2 glasses of wine every other day and has been drinking for long time. No other active issues right now. She is status post surgery and went through surgery uneventfully. Review of Systems Review of Systems: Right knee pain Yes all other systems are reviewed and are negative PMFSH Past Medical History Medical History Mechanical loosening of internal right knee prosthetic joint Recent urinary tract infection Right knee pain Surgical History Surgical History Cataract extraction status of left eye History of right knee surgery History of total right hip arthroplasty Social History Social History Alcohol intake: current Alcohol intake frequency: a few times a month Alcohol type: wine Smoking Status: Former smoker Second Hand Smoke Exposure: No service: No Meds Allergies Allergy/AdvReac Type Severity Reaction Status Date / Time No Known Allergies Allergy Verified 07/22/20 07:47 Physical Exam Vital Signs: Vital Signs: Last Vital Signs Temp 98.2 F 07/24/20 07:52 Pulse 84 07/24/20 07:52 Resp 18 07/24/20 07:52 BP 147/65 H 07/24/20 07:52 Pulse Ox 94 07/24/20 07:52 Body Mass Index 25.8 GENERAL APPEARANCE: in no acute distress, well developed, well nourished. HEENT: unremarkable. HEAD: normocephalic, atraumatic. NECK/THYROID: no carotid bruit, no jugular venous distention. SKIN: no suspicious lesions, warm and dry. HEART: no murmurs, regular rate and rhythm, S1, S2 normal. LUNGS: clear to auscultation bilaterally. ABDOMEN: normal, bowel sounds present, soft, nontender, nondistended. EXTREMITIES: no clubbing, cyanosis, or edema. PERIPHERAL PULSES: equal. NEUROLOGIC: nonfocal, alert and oriented. PSYCH: mood/affect full range. Results Labs and Meds Result diagrams: 07/24/20 05:57 07/24/20 05:57 Lab results: Laboratory Results - last 24 hr 07/24/20 07/24/20 05:57 05:57 WBC 7.3 RBC 2.89 L Hgb 9.9 L Hct 29.3 L MCV 101.4 H MCH 34.3 H MCHC 33.8 RDW 12.0 Plt Count 202 MPV 9.9 Immature Gran % (Auto) 0.3 Neut % (Auto) 61.6 Lymph % (Auto) 23.7 [place] % (Auto) 12.6 H Eos % (Auto) 1.5 Baso % (Auto) 0.3 Lymph # (Auto) 1.7 [place] # (Auto) 0.9 Eos # (Auto) 0.1 Baso # (Auto) 0.0 Abs Immat Gran (auto) 0.02 Absolute Neuts (auto) 4.5 Absolute Nucleated RBC 0.000 Nucleated RBC % (auto) 0.0 Sodium 131 L Potassium 4.4 Chloride 96 Carbon Dioxide 22 Anion Gap 17 BUN 13 Creatinine 0.53 Estim Creat Clear Calc 83.5 Estimated GFR > 60 Fasting Glucose 116 H Calcium 8.0 L Assessment and Plan (1) LBBB (left bundle branch block): Status: Acute (2) Alcohol abuse: Status: Acute 80-year-old female with left bundle-branch block and cardiomyopathy. EF is 35-40%. Clinically she is not in heart failure. Her blood pressure is somewhat elevated but she has been in pain. I think we can start her on carvedilol 3.125 mg twice a day. She will need further workup which we will arrange as outpatient. The possible etiologies include undiagnosed hypertension, coronary disease as well as alcohol use. She should abstain from alcohol going forward completely. Once she has recovered from the right knee surgery then we can discuss about ischemic evaluation which we will do as outpatient. Thank you for allowing me to participate in the care of your patient. Please feel free to contact me if you have any questions.
[2020-07-24 09:55] LABS: COVID-19 Test Negative (Negative); IDNOW Serial# 9DD0AD1C
--- NOTE | 2020-07-24 10:54 | MHC.CM.PN ---
PATIENT IS BEING OFFERED A BED AT [facility] FOR TUESDAY. PATIENT HAS A CARDIOLOGY CONSULT SO WILL REMAIN TODAY. BOTH COVIDS ARE UPLOADED. PATIENT WILL DC ON COVID WAIVER, SHE IS NOT INPATIENT.
[2020-07-24] MEDS: carvediloL 3.125 MG TABLET PO ×2 (11:16→20:50)
--- NOTE | 2020-07-24 13:56 | MHC.CM.PN ---
PATIENT'S SON, YARI ([phone]) AWARE THAT PATIENT WILL DISCHARGE TO [facility] ON TUESDAY.
[2020-07-24] MEDS: Sennosides 8.6 MG TABLET 17.2 MG PO (16:03)
--- NOTE | 2020-07-24 16:26 | MHC.CARE ---
CARE Team coordinated with case management. CARE Team to follow up with Pt upon request of case management.
[2020-07-24] MEDS: Omeprazole 20 MG CAPSULE.DR PO (20:50)
[2020-07-24] MEDS: ondansetron HCL 4 MG/2 ML VIAL IVPUSH (21:08)
[2020-07-25 03:18] VITALS: BP 145/63; PULSE 79; RESP 19; TEMP 36.4; O2SAT 94
[2020-07-25 06:27] LABS: MANUAL DIFF FLAG NO
[2020-07-25 06:46] LABS: Basophils Percent Auto 0.2 % (0-2); Eosinophils Absolute Auto 0.2 X10*3/uL (0.0-0.4); Eosinophils Percent Auto 1.8 % (0-4); Hematocrit 27.7 % (37-47); Hemoglobin 9.3 g/dl (12.0-16.0); Imm Gran Abs Auto 0.04 X10*3/uL (0.00-0.03); Imm Gran Pct Auto 0.4 % (0.0-0.4); Lymphocytes Absolute Auto 1.6 X10*3/uL (1.2-4.9); Lymphocytes Percent Auto 15.3 % (20-40); Mean Corpuscular HGB Conc 33.6 g/dl (31.0-35.0); Mean Corpuscular Hemoglobin 33.8 pg (27.0-33.0); Mean Corpuscular Volume 100.7 fL (80-98); Mean Platelet Volume 10.3 fL (9.4-12.3); Monocytes Percent Auto 9.3 % (2-11); Neutrophils Absolute Auto 7.6 X10*3/uL (2.0-8.3); Platelet Count 189 X10*3/uL (160-400); Red Blood Count 2.75 X10*6/uL (4.20-5.50); Red Cell Distribution Width 11.8 % (11.0-16.0); White Blood Count 10.4 X10*3/uL (4.8-10.8)
[2020-07-25 06:54] LABS: Anion Gap 12 (12-20); Blood Urea Nitrogen 15 mg/dL (9-16); Calcium 7.9 mg/dL (8.4-10.2); Carbon Dioxide 26 mmol/L (22-29); Chloride 94 mmol/L (96-108); Creatinine Clr Calc Pharmacy 81.9; Estimated Glomerular Filt Rate > 60; Glucose Fasting 107 mg/dL (60-99); Potassium 4.6 mmol/l (3.3-5.1); Sodium 127 mmol/L (135-145)
--- NOTE | 2020-07-25 07:44 | PM.DS ---
DS: Providers Provider Date of Service: 07/25/20 Primary care physician: Unknown Physician Consults: 07/22/20 15:32 Consult to Hospitalist Routine Consulting Provider: Hospitalist Reason for consultation: Medical Management 07/24/20 07:40 Consult to Cardiology Routine Consulting Provider: Mark Adams Reason for consultation: lbbb/LV dysfunction on echo Has provider been notified: No 07/24/20 15:56 Consult to Care Team Routine Comment: Reason for consultation: alcohol use DS: Diagnosis Discharge Diagnosis (1) Alcohol abuse: Status: Acute (2) LBBB (left bundle branch block): Status: Acute Problem details: Ms. Jaimes is a 80 yo female who presented to the office with ongoing right knee pain and instability s/p RT TKA. She was found to have loosening of her prosthesis. She continued to have difficulty with ambulation and daily activities; therefore she consented to move forward with a revision right total knee arthroplasty. DS: Medications Discharge Medications Home Medications: Previous Rx's Medication Instructions Recorded acetaminophen 650 mg PO Q6H PRN 30 Days #240 tab 07/23/20 aspirin 325 mg PO BID 14 Days #28 tab 07/23/20 folic acid 1 mg PO DAILY 30 Days #30 tab 07/23/20 sennosides [Senna Lax] 17.2 mg PO BEDTIME PRN 30 Days #60 07/23/20 tab carvedilol 3.125 mg PO BID #60 tab 07/24/20 celecoxib 200 mg PO BID 30 Days #60 cap 07/24/20 oxycodone 10 mg PO Q6H PRN 7 Days #28 tab 07/24/20 thiamine mononitrate (vit B1) 100 mg PO DAILY 30 Days #30 tab 07/24/20 DS: Summary Hospital Course Hospital Course: The patient underwent a successful right revision of total knee arthroplasty, they were transferred to PACU and then to the floor to recover. During their stay, their vitals were stable, afebrile at 97.6. Labs were unremarkable, H/H 9.3/27.7. POD 1 they were started on Aspirin 325mg po bid for DVT ppx, they also received Physical Therapy services twice a day. the patient was seen by cardiology for concerns of a LBBB. She was started on Carvedilol and will followup with cardiology outpatient.Prior to discharge, their dressing was changed, incision clean dry and intact, new Aquacel dressing applied and the plan was to be discharged to short term rehab. Time Spent with Patient Time attestation: Total time spent providing and/or coordinating discharge services: Discharge coordination time: Less than 30 minutes Physical Exam Vital Signs: Vital Signs: Last Vital Signs Temp 97.6 F 07/25/20 03:18 Pulse 79 07/25/20 03:18 Resp 19 07/25/20 03:18 BP 145/63 H 07/25/20 03:18 Pulse Ox 94 07/25/20 03:18 Body Mass Index 25.8 Const: General: cooperative, healthy appearing and no acute distress Resp: Effort & Inspection: normal respiratory effort and able to speak in complete sentences Cardio: Rate: regular rate Peripheral pulses: Peripheral pulses 2+ throughout GI: Palpation (GI): Soft to palpation Skin: Lesions: no lesions Rashes: no rashes Extrem: Other: Rt knee no redness, ecchymosis, or drainage. Incision is well approximated cristal intact. Calf is supple and nontender. Dressing is clean dry and intact. SHANTEL DS: Data Data Completed and Pending Pending studies at discharge: Pending at discharge 07/22/20 13:32 Surgical [PTH] Routine Labs on day of discharge: Laboratory Tests 06/30/20 06/30/20 06/30/20 11:15 11:15 11:15 WBC 5.8 RBC 3.64 L Hgb 12.0 Hct 37.1 MCV 101.9 H MCH 33.0 MCHC 32.3 RDW 12.0 Plt Count 303 MPV 9.6 Immature Gran % (Auto) 0.2 Neut % (Auto) 43.1 L Lymph % (Auto) 40.0 [place] % (Auto) 11.2 H Eos % (Auto) 5.0 H Baso % (Auto) 0.5 Lymph # (Auto) 2.3 [place] # (Auto) 0.7 Eos # (Auto) 0.3 Baso # (Auto) 0.0 Abs Immat Gran (auto) 0.01 Absolute Neuts (auto) 2.5 Absolute Nucleated RBC 0.000 Nucleated RBC % (auto) 0.0 Sodium 135 Potassium 4.7 Chloride 100 Carbon Dioxide 28 Anion Gap 12 BUN 18 H Creatinine 0.65 Estim Creat Clear Calc 68.0 Estimated GFR > 60 Random Glucose 102 Fasting Glucose Calcium 8.9 Nasal Screen MRSA (PCR) Nasal S. aureus Screen Nasal MRSA/S.aureus Interp COVID-19 ([facility]) COVID-19 Clin Com Blood Type B Positive Antibody Screen NEGATIVE 06/30/20 07/22/20 07/22/20 Unknown 07:35 07:50 WBC RBC Hgb Hct MCV MCH MCHC RDW Plt Count MPV Immature Gran % (Auto) Neut % (Auto) Lymph % (Auto) [place] % (Auto) Eos % (Auto) Baso % (Auto) Lymph # (Auto) [place] # (Auto) Eos # (Auto) Baso # (Auto) Abs Immat Gran (auto) Absolute Neuts (auto) Absolute Nucleated RBC Nucleated RBC % (auto) Sodium Potassium Chloride Carbon Dioxide Anion Gap BUN Creatinine Estim Creat Clear Calc Estimated GFR Random Glucose Fasting Glucose Calcium Nasal Screen MRSA (PCR) NEGATIVE Nasal S. aureus Screen NEGATIVE Nasal MRSA/S.aureus Interp SEE NOTE COVID-19 ([facility]) Negative COVID-19 Clin Com See Note Blood Type B Positive Antibody Screen NEGATIVE 07/23/20 07/23/20 07/24/20 06:15 06:15 05:57 WBC 7.7 7.3 RBC 3.06 L 2.89 L Hgb 10.2 L 9.9 L Hct 31.2 L 29.3 L MCV 102.0 H 101.4 H MCH 33.3 H 34.3 H MCHC 32.7 33.8 RDW 12.2 12.0 Plt Count 235 202 MPV 10.2 9.9 Immature Gran % (Auto) 0.4 0.3 Neut % (Auto) 68.3 61.6 Lymph % (Auto) 19.1 L 23.7 [place] % (Auto) 10.3 12.6 H Eos % (Auto) 1.6 1.5 Baso % (Auto) 0.3 0.3 Lymph # (Auto) 1.5 1.7 [place] # (Auto) 0.8 0.9 Eos # (Auto) 0.1 0.1 Baso # (Auto) 0.0 0.0 Abs Immat Gran (auto) 0.03 0.02 Absolute Neuts (auto) 5.3 4.5 Absolute Nucleated RBC 0.000 0.000 Nucleated RBC % (auto) 0.0 0.0 Sodium 131 L Potassium 4.1 Chloride 98 Carbon Dioxide 23 Anion Gap 14 BUN 24 H Creatinine 0.55 Estim Creat Clear Calc 80.4 Estimated GFR > 60 Random Glucose Fasting Glucose 138 H Calcium 7.9 L D Nasal Screen MRSA (PCR) Nasal S. aureus Screen Nasal MRSA/S.aureus Interp COVID-19 ([facility]) COVID-19 Clin Com Blood Type Antibody Screen 07/24/20 07/24/20 07/25/20 05:57 09:22 06:07 WBC 10.4 RBC 2.75 L Hgb 9.3 L Hct 27.7 L MCV 100.7 H MCH 33.8 H MCHC 33.6 RDW 11.8 Plt Count 189 MPV 10.3 Immature Gran % (Auto) 0.4 Neut % (Auto) 73.0 Lymph % (Auto) 15.3 L [place] % (Auto) 9.3 Eos % (Auto) 1.8 Baso % (Auto) 0.2 Lymph # (Auto) 1.6 [place] # (Auto) 1.0 Eos # (Auto) 0.2 Baso # (Auto) 0.0 Abs Immat Gran (auto) 0.04 H Absolute Neuts (auto) 7.6 Absolute Nucleated RBC 0.000 Nucleated RBC % (auto) 0.0 Sodium 131 L Potassium 4.4 Chloride 96 Carbon Dioxide 22 Anion Gap 17 BUN 13 Creatinine 0.53 Estim Creat Clear Calc 83.5 Estimated GFR > 60 Random Glucose Fasting Glucose 116 H Calcium 8.0 L Nasal Screen MRSA (PCR) Nasal S. aureus Screen Nasal MRSA/S.aureus Interp COVID-19 ([facility]) Negative COVID-19 Clin Com See Note Blood Type Antibody Screen 07/25/20 06:07 WBC RBC Hgb Hct MCV MCH MCHC RDW Plt Count MPV Immature Gran % (Auto) Neut % (Auto) Lymph % (Auto) [place] % (Auto) Eos % (Auto) Baso % (Auto) Lymph # (Auto) [place] # (Auto) Eos # (Auto) Baso # (Auto) Abs Immat Gran (auto) Absolute Neuts (auto) Absolute Nucleated RBC Nucleated RBC % (auto) Sodium 127 L Potassium 4.6 Chloride 94 L Carbon Dioxide 26 Anion Gap 12 BUN 15 Creatinine 0.54 Estim Creat Clear Calc 81.9 Estimated GFR > 60 Random Glucose Fasting Glucose 107 H Calcium 7.9 L Nasal Screen MRSA (PCR) Nasal S. aureus Screen Nasal MRSA/S.aureus Interp COVID-19 ([facility]) COVID-19 Clin Com Blood Type Antibody Screen Discharge Plan Discharge Patient Disposition: Xfer SNF Referrals: Sanford Sy MD [Physician] - Mark Adams MD [Physician] - (follow up in 2 weeks ) Orlin Cummings PA-C [Physician [employer]] - (08/07/20 12:30) Discharge Medications: New sennosides [Senna Lax] 8.6 mg Tablet 17.2 mg PO BEDTIME PRN (Reason: Constipation) 30 Days Qty: 60 RF: 0 acetaminophen 325 mg Tablet 650 mg PO Q6H PRN (Reason: Pain, Mild (Pain Scale 1-3)) 30 Days Qty: 240 RF: 0 aspirin 325 mg Tablet 325 mg PO BID 14 Days Qty: 28 RF: 0 folic acid 1 mg Tablet 1 mg PO DAILY 30 Days Qty: 30 RF: 0 celecoxib 200 mg Capsule 200 mg PO BID 30 Days Qty: 60 RF: 0 oxycodone 10 mg tablet 10 mg PO Q6H PRN (Reason: Pain, Moderate (Pain Scale 4-6) 7 Days Qty: 28 RF: 0 thiamine mononitrate (vit B1) 100 mg Tablet 100 mg PO DAILY 30 Days Qty: 30 RF: 0 carvedilol 3.125 mg Tablet 3.125 mg PO BID Qty: 60 RF: 0 Discontinued acetaminophen 325 mg Tablet 650 mg PO Q6H PRN (Reason: Pain) RF: 0 Discharge Orders: Discharge Order (Routine); Ordered 07/25/20 Ordered By: Loly Pires Activity Restrictions/Additional Instructions: Physical Therapy for ROM 0-120, quad strength, gait training . Use walker for ambulation Limit stair climbing, No shower, No tub bath, No driving Continue anticoagulant Keep Aquacel dressing clean, dry and intact. Follow up with orthopedics in 2 weeks
[2020-07-25 07:55] VITALS: BP 122/57; PULSE 77; RESP 18; TEMP 36.2; O2SAT 96
--- NOTE | 2020-07-25 08:06 | P.F2F_ITS ---
Service Date Service Date: 07/25/20 Reasons for Services Reason for physical therapy: home safety and mobility, therapeutic exercises, restore joint function, gait/transfer training and ADL training Reason for occupational therapy: home safety and mobility, therapeutic exercises, gait/transfer training, assess need for DME and ADL training Homebound: Leaving the home is medically contraindicated at this time without the asist of a device and/or another person due th the listed conditions above and below. Reason homebound: unsteady gait / fall risk, leg weakness, pain with ambulation, pain with transfers, poor balance / fall risk and unable to drive Homebound supporting statement: Pt. is considered homebound due to recent surgery. Unable to drive, poor balance, poor gait mechanics. Certification: Based on the above findings, I certify that this patient is confined to the home and needs intermittent half-way care, physical therapy and/or speech therapy, or continues to need occupational therapy. The patient is under my care, and I have initiated the establishment of the plan of care. The patient will be followed by a physician who will periodically review the plan of care.
[2020-07-25] MEDS: Aspirin 325 MG TABLET PO (09:02)
[2020-07-25] MEDS: Acetaminophen 325 MG TABLET 650 MG PO (09:02)
[2020-07-25] MEDS: Folic Acid 1 MG TABLET PO (09:03)
[2020-07-25] MEDS: 0.9 % Sodium Chloride Flush 3 ML SYRINGE IVFLUSH (09:03)
[2020-07-25] MEDS: carvediloL 3.125 MG TABLET PO (09:03)
[2020-07-25] MEDS: Thiamine HCL 100 MG TABLET PO (09:03)
[2020-07-25] MEDS: Celecoxib 200 MG CAPSULE PO (09:03)
[2020-07-25 09:16] VITALS: BP 122/57; PULSE 77; O2SAT 96
--- NOTE | 2020-07-25 10:48 | HO.PM.IMPN ---
Subjective Subjective Date of Service: 07/25/20 Interval History: Lv dysfuction, hyponatremia. Review of Systems Patient denies any chest pain or shortness of breath or abdominal pain or fever or chills or cough or phlegm. No urinary complaints. Physical Exam Vital Signs: Vital Signs: Last Vital Signs Temp 97.2 F 07/25/20 07:55 Pulse 77 07/25/20 09:16 Resp 18 07/25/20 07:55 BP 122/57 L 07/25/20 09:16 Pulse Ox 96 07/25/20 09:16 Body Mass Index 25.8 Physical exam: Constitutional: Not in acute distress Cvs: rrr, [id number] , no murmur res: clear to auscultation ,no rhonchii or wheezing abd: no rebound or guarding ,nt, bs present. ext pulses present , no cyanosis neuro: axo3 , nonfocal. Objective Data Current Medications Generic Name Dose Route Start Last Admin Trade Name Freq PRN Reason Stop Dose Admin Acetaminophen 650 mg 07/22/20 15:32 07/25/20 09:02 Acetaminophen 325 Mg Tablet PO 650 mg Q6H PRN Administration Pain, Mild (Pain Scale 1-3) Aspirin 325 mg 07/23/20 13:00 07/25/20 09:02 Aspirin 325 Mg Tablet PO 325 mg BID BRENDAN Administration Carvedilol 3.125 mg 07/24/20 10:00 07/25/20 09:03 Carvedilol 3.125 Mg Tablet PO 3.125 mg BID BRENDAN Administration Protocol Celecoxib 200 mg 07/22/20 21:00 07/25/20 09:03 Celecoxib 200 Mg Capsule PO 200 mg BID BRENDAN Administration Folic Acid 1 mg 07/22/20 17:45 07/25/20 09:03 Folic Acid 1 Mg Tablet PO 1 mg DAILY BRENDAN Administration Hydromorphone HCl 0.25 mg 07/22/20 14:39 07/22/20 14:43 Hydromorphone Hcl 0.5 Mg/0.5 Ml Syringe IVPUSH 0.25 mg Q5M PRN Administration Pain, Severe (Pain Scale 7-10) Hydromorphone HCl 0.25 mg 07/22/20 15:32 07/24/20 01:00 Hydromorphone Hcl 0.5 Mg/0.5 Ml Syringe IVPUSH 0.25 mg Q4H PRN Administration Pain, Severe (Pain Scale 7-10) Naloxone HCl 0.2 mg 07/22/20 15:32 Naloxone Hcl 0.4 Mg/Ml Vial IVPUSH Q2M PRN Excessive sedation or RR < 8 Omeprazole 20 mg 07/23/20 21:00 07/24/20 20:50 Omeprazole 20 Mg Capsule.Dr PO 20 mg BEDTIME BRENDAN Administration Ondansetron HCl 4 mg 07/22/20 14:02 07/24/20 21:08 Ondansetron Hcl 4 Mg/2 Ml Vial IVPUSH 4 mg ONCE PRN Administration Nausea and Vomiting Ondansetron HCl 4 mg 07/22/20 15:32 Ondansetron Hcl 4 Mg/2 Ml Vial IVPUSH Q8H PRN Nausea and Vomiting Oxycodone HCl 10 mg 07/23/20 10:08 07/24/20 09:08 Oxycodone Hcl Immed Release 5 Mg Tablet PO 10 mg Q6H PRN Administration Pain, Moderate (Pain Scale 4-6 Senna 17.2 mg 07/22/20 15:32 07/24/20 16:03 Sennosides 8.6 Mg Tablet PO 17.2 mg BEDTIME PRN Administration Constipation Sodium Chloride 3 ml 07/22/20 16:00 07/25/20 09:03 0.9 % Sodium Chloride Flush 3 Ml Syringe IVFLUSH 3 ml QSHIFT BRENDAN Administration Thiamine HCl 100 mg 07/22/20 17:45 07/25/20 09:03 Thiamine Hcl 100 Mg Tablet PO 100 mg DAILY BRENDAN Administration Labs CBC & Chem 7: 07/25/20 06:07 07/25/20 12:29 Assessment and Plan (1) Alcohol abuse: Status: Acute (2) LBBB (left bundle branch block): Status: Acute Assessment and Plan: 1. Mechanical loosening of right knee prosthetic joint:revision right total knee arthroplasty. Status post surgery day4 postop anemia Management as per primary team 2. Alcohol use: Will add thiamine folic acid, CIWA Swat evaluation 3. EKG abnormal: Lbbb: Patient is totally in symptomatic denies any chest pain or shortness of breath or weakness ECHO : ef 35-40% ,There is mild global hypokinesis. Abnormal diastolic function is noted. Cardio evaluation noted-will add Coreg since patient is asymptomatic but has LV dysfunction on the echo. Patient is to follow up outpatient with PCP and Cardiology, cardio may arrange their own appointment outpatient. 4. Mild hyponatremia probably related to hyper include, we will DC d51/2 ns. Repeated sodium is in 130 range Please repeat electrolytes in rehab in 1 week. Above was discussed with primary team in detail length, will sign off now ,please call us if any questions
--- NOTE | 2020-07-25 11:08 | MHC.CM.PN ---
PATIENT IS DISCHARGED TO [facility]IA [facility]. TRANSPORT TIME AGREED UPON @ [phone] RN AND UNIT AWARE OF PLAN.
[2020-07-25] MEDS: polyethylene glycoL 3350 17 GM POWD.PACK PO (11:23)
[2020-07-25] MEDS: oxyCODONE HCl Immed Release 5 MG TABLET 10 MG PO (12:57)
[2020-07-25 13:16] LABS: Sodium 130 mmol/L (135-145)
[2020-07-25 13:22] LABS: Alanine Aminotransferase 11 U/L (0-31); Albumin Level 3.2 g/dL (3.5-5.0); Alkaline Phosphatase 48 U/L (39-117); Aspartate Amino Transferase 16 U/L (5-31); Bilirubin Direct 0.3 mg/dL (0.0-0.5); Bilirubin Total 0.8 mg/dL (0.0-1.0); Total Protein 5.3 g/dL (6.5-8.0)
[2020-07-25 13:38] LABS: Osmolality Urine 221 mosm/kg (373-1093); Osmolality, Serum 275 mosm/kg (281-305)
[2020-07-25 17:14] LABS: Potassium Urine Random 16.9 mmol/L; Sodium Urine Random < 20.0 mmol/L
[2020-07-25 18:21] LABS: Chloride Urine Random < 20.0 mmol/L
== END 2020-07-25 14:19 | disposition skilled nursing facility (03) ==
LOC: HO.SSS 15:17 → HO.S3 15:17
PROVIDERS: Internal Medicine; Nurse Practitioner; Physician Assistant; Visit Provider Orthopaedic Surgery
PROC: (CPT 27487; principal; 2020-07-22 09:30)
DX: T84.032A Mechanical loosening of internal right knee prosthetic joint, initial encounter (principal); Z96.651 Presence of right artificial knee joint; I44.7 Left bundle-branch block, unspecified; F10.10 Alcohol abuse, uncomplicated; Z20.822 Contact with and (suspected) exposure to COVID-19
CPT/HCPCS: 27487; 36415; 73560; 80048; 80076; 82436; 83930; 83935; 84133; 84295; 84300; 85025; 86850; 86900; 86901; 87635; 87640; 87641; 88305; 88311; 93005; 93306; 97110; 97116; 97162; 97530; C1713; C1776; J0131; J0171; J0690; J1170; J2370; J2405

== ENCOUNTER 2020-08-07 08:42 | Outpatient (REF) | payer MEDICARE, SELFPAY ==
--- NOTE | ~2020-08-07 | XR_ITS ---
EXAMINATION: XR KNEE, RIGHT CLINICAL INFORMATION: Right artificial knee joint. COMPARISON: 07/22/2020 and 04/04/2020. TECHNIQUE: AP standing views of both knees as well as lateral view of the right knee. FINDINGS: Medial and lateral joint space compartments of the left knee are maintained. Patient is status post right total knee arthroplasty with prosthetic components appearing to be in satisfactory position and unchanged in position compared to prior study of 07/22/2020. Skin cristal present. Previously noted gas from recent surgery has been resorbed. No acute fracture or dislocation is evident. XR/XR knee RT 3V IMPRESSION: Unchanged and satisfactory appearance status post right total knee arthroplasty.
== END 2020-08-07 08:43 | disposition home or self-care (01) ==
LOC: HO.HOSX 08:42
PROVIDERS: Visit Provider Physician Assistant
DX: Z47.89 Encounter for other orthopedic aftercare (principal); Z48.02 Encounter for removal of sutures; Z96.651 Presence of right artificial knee joint
CPT/HCPCS: 73562; 99212

== ENCOUNTER → 2020-08-14 13:33 | Outpatient (BNVA) | payer MEDICARE, SELFPAY | PROVIDERS: Visit Provider Physician Assistant | DX: Z96.651 Presence of right artificial knee joint (principal) | CPT/HCPCS: 99212 ==

== ENCOUNTER 2020-08-18 09:15 | Outpatient (REF) | payer MEDICARE, SELFPAY ==
[2020-08-18 10:59] LABS: Hematocrit 32.8 % (37-47); Hemoglobin 10.8 g/dl (12.0-16.0); Mean Corpuscular HGB Conc 32.9 g/dl (31.0-35.0); Mean Corpuscular Hemoglobin 32.7 pg (27.0-33.0); Mean Corpuscular Volume 99.4 fL (80-98); Platelet Count 404 X10*3/uL (160-400); Red Cell Distribution Width 12.2 % (11.0-16.0); White Blood Count 7.4 X10*3/uL (4.8-10.8)
[2020-08-18 11:00] LABS: Prothrombin Time 11.3 SEC (10.8-13.0)
[2020-08-18 11:25] LABS: Anion Gap 15 (12-20); Blood Urea Nitrogen 26 mg/dL (9-16); Calcium 8.9 mg/dL (8.4-10.2); Carbon Dioxide 22 mmol/L (22-29); Chloride 95 mmol/L (96-108); Estimated Glomerular Filt Rate 58; Glucose Random 93 mg/dL (60-115); Potassium 5.7 mmol/L (3.3-5.1); Sodium 126 mmol/L (135-145)
[2020-08-18 11:48] LABS: Erythrocyte Sedimentation Rate 13 MM/HR (0-20)
== END 2020-08-18 09:16 | disposition home or self-care (01) ==
LOC: HO.LAB 09:15
PROVIDERS: Orthopaedic Surgery; Visit Provider Internal Medicine Cardiovascular Disease
DX: I42.9 Cardiomyopathy, unspecified (principal); I44.7 Left bundle-branch block, unspecified; T84.032A Mechanical loosening of internal right knee prosthetic joint, initial encounter; F10.10 Alcohol abuse, uncomplicated; Z87.891 Personal history of nicotine dependence; Z79.82 Long term (current) use of aspirin; Z79.899 Other long term (current) drug therapy
CPT/HCPCS: 36415; 80048; 85027; 85610; 85652; 86140; 99212

== ENCOUNTER → 2020-08-21 13:45 | Outpatient (BNVA) | payer MEDICARE, SELFPAY | PROVIDERS: PCP Hospitalist; Visit Provider Physician Assistant | DX: Z96.651 Presence of right artificial knee joint (principal) | CPT/HCPCS: 99212 ==

== ENCOUNTER 2020-09-10 12:54 | Outpatient (REF) | payer MEDICARE, SELFPAY ==
[2020-09-10 14:44] LABS: Anion Gap 12 (12-20); Blood Urea Nitrogen 21 mg/dL (9-16); Calcium 8.7 mg/dL (8.4-10.2); Carbon Dioxide 27 mmol/L (22-29); Chloride 100 mmol/L (96-108); Estimated Glomerular Filt Rate > 60; Glucose Random 110 mg/dL (60-115); Sodium 134 mmol/L (135-145)
== END 2020-09-10 12:55 | disposition home or self-care (01) ==
LOC: HO.LAB 12:54
PROVIDERS: PCP Hospitalist; Visit Provider Internal Medicine Cardiovascular Disease
DX: I44.7 Left bundle-branch block, unspecified (principal); I42.9 Cardiomyopathy, unspecified; E87.5 Hyperkalemia; Z79.899 Other long term (current) drug therapy; Z98.890 Other specified postprocedural states
CPT/HCPCS: 36415; 80048; 99212

== ENCOUNTER → 2020-10-16 12:06 | Outpatient (BNVA) | payer MEDICARE, SELFPAY | PROVIDERS: PCP Hospitalist; Visit Provider Orthopaedic Surgery | DX: Z47.1 Aftercare following joint replacement surgery (principal); Z96.651 Presence of right artificial knee joint | CPT/HCPCS: 99212 ==

== ENCOUNTER 2020-11-10 14:10 | Outpatient (REF) | payer MEDICARE, SELFPAY ==
[2020-11-10 15:13] LABS: Potassium 4.9 mmol/L (3.3-5.1)
== END 2020-11-10 14:11 | disposition home or self-care (01) ==
LOC: HO.LAB 14:10
PROVIDERS: PCP Hospitalist; Visit Provider Internal Medicine Cardiovascular Disease
DX: E87.5 Hyperkalemia (principal)
CPT/HCPCS: 36415; 84132

== ENCOUNTER → 2020-11-12 12:37 | Outpatient (BNVA) | payer MEDICARE, SELFPAY | PROVIDERS: PCP Hospitalist; Referring Provider Hospitalist; Visit Provider Internal Medicine Cardiovascular Disease | DX: I44.7 Left bundle-branch block, unspecified (principal); I42.9 Cardiomyopathy, unspecified; Z98.890 Other specified postprocedural states | CPT/HCPCS: 99212 ==

== ENCOUNTER 2021-01-15 09:13 | Outpatient (REF) | payer MEDICARE, SELFPAY | END 2021-01-15 09:14 | disposition home or self-care (01) | LOC: HO.HOSX 09:13 | PROVIDERS: Visit Provider Orthopaedic Surgery | DX: Z13.89 Encounter for screening for other disorder (principal) ==

== ENCOUNTER → 2021-01-22 11:06 | Outpatient (BNVA) | payer MEDICARE, SELFPAY | PROVIDERS: PCP Hospitalist; Referring Provider Hospitalist; Visit Provider Internal Medicine Cardiovascular Disease | DX: I44.7 Left bundle-branch block, unspecified (principal); I42.9 Cardiomyopathy, unspecified; Z98.890 Other specified postprocedural states | CPT/HCPCS: 99212 ==

== ENCOUNTER 2021-01-23 09:27 | Outpatient (REF) | payer MEDICARE, SELFPAY ==
--- NOTE | ~2021-01-23 | XR_ITS ---
EXAMINATION: XR KNEES, STANDING AP XR KNEE, RIGHT CLINICAL INFORMATION: M25.569 - Pain in unspecified knee COMPARISON: Standing AP knees and right knee 08/07/2020, right knee 07/22/2020 TECHNIQUE: Standing AP view of both knees is performed along with lateral and axial patella views of the right knee. FINDINGS: Right: There is prior knee arthroplasty with hinged prosthesis. Hardware is intact. There is no fracture, dislocation, destructive process, or osteolysis. Small suprapatellar effusion is present. There is some edema or thickening in region of the patella tendon. Some fine soft tissue mineralizations are stable. Left: No fracture or destructive process. No significant joint narrowing or persistent no erosive change or chondrocalcinosis. There are some subtle lucencies in the intramedullary distal femoral shaft which are stable. XR/XR knee standing BI IMPRESSION: Right: -Prior knee arthroplasty. Hardware intact. No osteolysis. -Small effusion. Edema or thickening in region of patella tendon. Left: -Unremarkable.
--- NOTE | ~2021-01-23 | XR_ITS ---
EXAMINATION: XR KNEES, STANDING AP XR KNEE, RIGHT CLINICAL INFORMATION: M25.569 - Pain in unspecified knee COMPARISON: Standing AP knees and right knee 08/07/2020, right knee 07/22/2020 TECHNIQUE: Standing AP view of both knees is performed along with lateral and axial patella views of the right knee. FINDINGS: Right: There is prior knee arthroplasty with hinged prosthesis. Hardware is intact. There is no fracture, dislocation, destructive process, or osteolysis. Small suprapatellar effusion is present. There is some edema or thickening in region of the patella tendon. Some fine soft tissue mineralizations are stable. Left: No fracture or destructive process. No significant joint narrowing or persistent no erosive change or chondrocalcinosis. There are some subtle lucencies in the intramedullary distal femoral shaft which are stable. XR/XR knee RT 2V IMPRESSION: Right: -Prior knee arthroplasty. Hardware intact. No osteolysis. -Small effusion. Edema or thickening in region of patella tendon. Left: -Unremarkable.
== END 2021-01-23 09:28 | disposition home or self-care (01) ==
LOC: HO.HOSX 09:27
PROVIDERS: Visit Provider Orthopaedic Surgery
DX: T84.84XA Pain due to internal orthopedic prosthetic devices, implants and grafts, initial encounter (principal); Z96.651 Presence of right artificial knee joint
CPT/HCPCS: 73560; 73565; 99212

== ENCOUNTER → 2021-03-09 10:17 | Outpatient (REF) | payer MEDICARE, SELFPAY ==
--- NOTE | 2021-03-09 10:21 | CA_ITS ---
Transthoracic Echocardiogram Patient (Last, First, Middle): Loni Jaimes M Gender: Female Date of : 1940 Age: 81 Procedure Date: 03/09/2021 Procedure Type: Transthoracic Echocardiogram Location: OP Height: 170.18 cm Weight: 70.31 kg BSA: 1.81 m2 Heart Rate: bpm BP: 130 / 60 mmHg Specimen Boss: DEMARCUS Referring MD: Mark Adams MD Symptoms: I42.9 - Cardiomyopathy, unspecified Study Quality: Fair/contrast Conclusions: - Normal left ventricular cavity size. There is mildly increased left ventricular wall thickness. The left ventricular systolic function is low normal. The visually estimated ejection fraction is between 50-55%. - Normal right ventricular cavity size and systolic function. Findings Procedure Information Contrast agent, definity, is being given per protocol without apparent complications. Left Ventricle Normal left ventricular cavity size. There is mildly increased left ventricular wall thickness. The left ventricular systolic function is low normal. The visually estimated ejection fraction is between 50-55%. Abnormal diastolic function is noted. Spectral Doppler is indicative of an impaired relaxation filling pattern. E/E prime ratio is between 8 and 15 consistent with indeterminate filling pressures. Right Ventricle Normal right ventricular cavity size and systolic function. Atria The left atrium is mildly dilated. The right atrium is normal in size. Aortic Valve There is a normal trileaflet aortic valve. There is no aortic valve stenosis. There is no aortic valve regurgitation. Mitral Valve Normal mitral valve structure and function. There is mild mitral valve regurgitation. There is no mitral valve stenosis. Pulmonic Valve The pulmonic valve is likely normal. Tricuspid Valve Normal tricuspid valve structure and function. There is mild tricuspid valve regurgitation. Normal right atrial pressure. There is no evidence of pulmonary hypertension. Great Vessels The pulmonary artery was not well visualized. There is mild dilatation of the ascending aorta. Venous The inferior vena cava is normal in size and collapses greater than 50% with inspiration. Pericardium/Pleural There is no evidence of pericardial effusion. Prior Study Comparison Changes noted compared to prior study dated: 07/23/2020. EF 50-55% now. Measurements 2D Linear Measurements IVSd: 1.11 0.6-0.9/0.6-1.0 cm LVIDd: 4.31 3.9-5.3/4.2-5.9 cm LVIDd Index: 2.38 2.4-3.2/2.2-3.1 cm/m2 LVIDs: 3.34 2.0-3.6 cm LVPWd: 0.78 0.7-1.1 cm Ao Root: 3.10 2.1-3.5 cm LA Diam: 3.80 2.7-3.8/3.0-4.0 cm LAIDs Index: 2.10 1.5-2.3 cm/m2 LV Mass: 164.60 67-162/88-224 g LV Mass Index: 90.94 43-95/49-115 g/m2 LVOT Diam: 2.00 3.0+(-)1.3 cm 2D Systolic Function EF 4C: 39.30 >55% EF 2C: 55.10 >55% Mitral Valve MV Pk E: 0.65 MV PK A: 1.08 MV Decel Time: 144.00 E/A: 0.60 E'Lateral: 5.22 E'Medial: 4.03 E/E' Med: 16.20 E/E' Lat: 12.50 PHT: 42.00 MVA PHT: 5.24 Decel [place]: 4.53 Aortic Valve AoV Pk Jeremy: 1.13 AoV Mn Jeremy: 0.85 AoV VTI: 0.24 AoV Pk Grad: 5.00 Aov Mn Grad: 3.00 EDEN Cont.VTI: 2.43 LVOT LVOT Pk Jeremy: 0.89 LVOT Mn Jeremy: 0.63 LVOT VTI: 0.19 LVOT Pk Grad: 3.00 LVOT Mn Grad: 2.00 LVOT Diam: 2.00 LVOT Area: 3.14 Diastolic Function MV Pk E: 0.65 MV Pk A: 1.08 E/A: 0.60 E'Medial: 4.03 E/E' Med: 16.20 E' Laterial: 5.22 E/E' Lat: 12.50 Right Ventricle TAPSE (mm): 1.83 TVS' Jeremy: 12.20 Tricuspid Valve TR Pk Jeremy: 2.71 TR Pk Grad: 29.00 RA Press: 3.00 RVSP: 32.00 Great Vessels Aorta Ao Root-2D: 3.10 2.0-3.7 cm Ao Asc: 3.60 2.1-3.4 cm Ao Arch: 3.00 Updated in Other Vendor System with Status of Final Mark Adams MD electronically signed on 03/11/2021 3:30:30 PM with status of Final
== END ==
LOC: HO.CARD 10:17
PROVIDERS: PCP Hospitalist; Visit Provider Internal Medicine Cardiovascular Disease
DX: I42.9 Cardiomyopathy, unspecified (principal)
CPT/HCPCS: 93306; Q9957

== ENCOUNTER 2021-04-02 08:18 | Outpatient (REF) | payer MEDICARE, SELFPAY ==
--- NOTE | ~2021-04-02 | XR_ITS ---
EXAMINATION: XR PELVIS CLINICAL INFORMATION: Right hip pain COMPARISON: None TECHNIQUE: AP view of the pelvis. FINDINGS: There is a right hip hemiarthroplasty in satisfactory position. No fracture, dislocation or x-ray evidence of loosening is seen. There is mild arthritis at the left hip joint with joint space narrowing and osteophyte formation. Bones of the pelvis are unremarkable. There are degenerative changes visualized lower lumbar spine. Soft tissues are unremarkable. XR/XR pelvis 1-2V IMPRESSION: Right hip hemiarthroplasty in satisfactory position. Mild arthritis at the left hip joint. Degenerative changes of the lower lumbar spine.
== END 2021-04-02 08:19 | disposition home or self-care (01) ==
LOC: HO.HOSX 08:18
PROVIDERS: Visit Provider Orthopaedic Surgery
DX: M70.62 Trochanteric bursitis, left hip (principal); Z96.651 Presence of right artificial knee joint
CPT/HCPCS: 72170; 99212

== ENCOUNTER 2021-04-08 06:21 | Outpatient (REF) | payer MEDICARE, SELFPAY ==
--- NOTE | ~2021-04-08 | FL_ITS ---
EXAMINATION: XR FLUOROSCOPY WITH IMAGES CLINICAL INFORMATION: Presence of right artificial knee joint. COMPARISON: Right knee radiographs dated 01/23/2021. TECHNIQUE: Fluoroscopy performed by Dr. Oneill. Fluoroscopy time: 0.2 minutes DAP: 0.287 Gycm2 Images: 3 FL/FL guidance in treatment room FINDINGS/IMPRESSION: Fluoroscopy was performed for procedural guidance. Please refer to the procedure report for more detailed findings.
== END 2021-04-08 06:22 | disposition home or self-care (01) ==
LOC: HO.RADIR 06:21
PROVIDERS: Visit Provider Internal Medicine
DX: T84.84XA Pain due to internal orthopedic prosthetic devices, implants and grafts, initial encounter (principal); Z96.651 Presence of right artificial knee joint
CPT/HCPCS: 64450; 64454

== ENCOUNTER 2021-04-10 11:23 | Emergency (ER) | payer MEDICARE, SELFPAY ==
--- NOTE | ~2021-04-10 | US_ITS ---
EXAMINATION: US EXTRACRANIAL CAROTID DUPLEX, BILATERAL CLINICAL INFORMATION: TIA COMPARISON: None TECHNIQUE: Real-time ultrasound and Doppler techniques (integrating B-mode 2-D vascular images, Doppler spectral analysis and color-flow Doppler imaging) were utilized to interrogate the extracranial carotid arteries, the vertebral arteries and proximal subclavian arteries bilaterally. The degree of stenosis is determined by criteria similar to NASCET. FINDINGS: Right Side: 1. There is moderate calcified atherosclerotic plaque seen in the bifurcation/proximal ICA region. 2. The common carotid artery PSV proximally is 52 cm/s and distally 72 cm/s. 3. The proximal internal carotid artery velocities are 76 cm/s systolic and 22 cm/s diastolic. 4. The proximal external carotid artery PSV is 121 cm/s. 5. The vertebral artery shows antegrade flow. 6. The subclavian artery waveforms are normal. Left Side: 1. There is a small amount of atherosclerotic plaque seen in the bifurcation/proximal ICA region. 2. The common carotid artery PSV proximally is 60 cm/s and distally 61 cm/s. 3. The proximal internal carotid artery velocities are 89 cm/s systolic and 22 cm/s diastolic. 4. The proximal external carotid artery PSV is 163 cm/s. 5. The vertebral artery shows antegrade flow. 6. The subclavian artery waveforms are normal. US/US carotid duplex BI IMPRESSION: 1. RIGHT: Minimal, non-hemodynamically significant stenosis of the proximal right internal carotid artery corresponding to a 0-49% stenosis by velocity criteria. 2. LEFT: Minimal, non-hemodynamically significant stenosis of the proximal left internal carotid artery corresponding to a 0-49% stenosis by velocity criteria.
--- NOTE | ~2021-04-10 | CT_ITS ---
EXAMINATION: CT HEAD WITHOUT CONTRAST (STROKE PROTOCOL) CLINICAL INFORMATION: Stroke protocol. Weakness, confusion, slurred speech for 5 minutes. COMPARISON: None TECHNIQUE: Contiguous axial imaging was performed from the skull base to vertex without intravenous administration of contrast. This CT examination was performed using dose optimization techniques as appropriate, variously including the following: *Automated exposure control *Adjustment of mA and/or kV according to patient size (this includes techniques or standardized protocols for targeted exams where dose is matched to indication/reason for exam; i.e. extremities or head) *Use of iterative reconstruction technique DLP: 616 mGy-cm FINDINGS: There is no intracranial hemorrhage, hematoma, or extra-axial fluid collection. The ventricles are normal in size. There is no hydrocephalus, edema, or mass effect. The morales-white matter differentiation appears symmetric. There is no acute infarct or mass lesion. There is periventricular white matter low density present consistent with microangiopathy. The calvarium appears intact. There is no pneumocephalus or orbital emphysema. There is some soft tissues density seen about the posterior aspect of the left maxillary sinus which may be related to mucous retention cyst/debris versus fluid from acute sinusitis. Minimal mucosal thickening is seen dependent portion of the right sphenoid sinus. CT/CT head for stroke IMPRESSION: No acute intracranial pathology. Findings consistent with microangiopathy. This critical result was discussed with Dr. Evans at 12:24 PM hours on April 10, 2021. It was ascertained that the content and urgency of the report was understood at the time of direct communication.
--- NOTE | ~2021-04-10 | XR_ITS ---
EXAMINATION: XR CHEST CLINICAL INFORMATION: Neuro symptoms. Chest pain COMPARISON: None TECHNIQUE: Frontal view of the chest was obtained. FINDINGS: The lungs are well-expanded and clear acute pneumonic process. 2.8 cm nodule right lower lobe with moderate right hilar mass or lymphadenopathy. Heart size and pulmonary vascularity is normal. No gross bony abnormality seen. XR/XR chest 1V IMPRESSION: 2.8 cm mass right lower lobe with right hilar mass likely lymphadenopathy. Correlation with CT chest is recommended.
[2021-04-10 11:27] VITALS: BP 154/51; PULSE 72; RESP 18; TEMP 36.7; O2SAT 99; BMI 25.2
--- NOTE | 2021-04-10 12:03 | ED_ITS ---
HPI - Neuro Symptoms/Deficit General Chief Complaint: Neuro Symptoms/Deficit Stated Complaint: slurred speech, disoriented, rash Time Seen by Provider: 04/10/21 11:45 History of Present Illness HPI Narrative: Patient is an 81-year-old female with a history of cardiomyopathy. Previous history of ETOH use. Previous history of TIAs. Presented today with having an episode of confusion. Slurred speech. Speech does not make sense. Altered mental status. Lasting about 5 minutes yesterday. The symptoms happen approximately 14:00 yesterday. Gradually recover. Today patient has no symptoms. No fever no chills no cough no congestion or upper respiratory symptoms. Patient is immunized for COVID. There is no focal weakness. Related Data Home Medications Medication Instructions Recorded Confirmed aspirin 81 mg tablet,delayed 81 mg PO DAILY 09/10/20 04/08/21 release (Adult Low Dose Aspirin) cranberry 500 mg capsule 1,000 mg PO BID cap 01/22/21 04/08/21 Previous Rx's Medication Instructions Recorded acetaminophen 325 mg tablet 650 mg PO Q6H PRN 30 Days #240 tab 07/23/20 amoxicillin 500 mg tablet 500 mg PO ONCE 1 Days #4 tab 10/21/20 carvedilol 6.25 mg tablet 6.25 mg PO BID #90 tab 01/22/21 atorvastatin 40 mg tablet 40 mg PO BEDTIME 30 Days #30 tab 04/07/21 sulfamethoxazole 800 1 tab PO BID 7 Days #14 tab 04/10/21 mg-trimethoprim 160 mg tablet (Bactrim DS) Allergies Allergy/AdvReac Type Severity Reaction Status Date / Time No Known Allergies Allergy Verified 04/10/21 11:27 Review of Systems Review of Systems: No fever no chills no cough no congestion or upper respiratory symptoms. No diaphoresis. Globally appear confused to family. Positive change in speech. Speech does not make sense. All systems reviewed otherwise negative Yes all other systems are reviewed and are negative [facility] Past Medical History Medical History Alcohol abuse LBBB (left bundle branch block) Mechanical loosening of internal right knee prosthetic joint Recent urinary tract infection Right knee pain Surgical History Cataract extraction status of left eye History of right knee surgery History of total right hip arthroplasty Status post cardiac catheterization (~08/2020) Social History Social History Are you a primary health careers instructor to a significant other at home: No Do you presently have visiting nurse or other home services: No Alcohol intake: current Alcohol intake frequency: a few times a month Alcohol type: wine Patient Tobacco Use Status: Never used Tobacco Second Hand Smoke Exposure: No Advance Directives: No Advance Directives Information Provided: Yes service: No Current occupational status: retired Current occupation: rt hand Physical Exam Vital Signs: Vital Signs: Last Vital Signs Temp 98.1 F 04/10/21 11:27 Pulse 72 04/10/21 11:27 Resp 18 04/10/21 11:27 BP 154/51 H 04/10/21 11:27 Pulse Ox 99 04/10/21 11:27 Body Mass Index 25.2 Appearance: Alert. Oriented X3. No acute distress. Eyes: Pupils equal, round and reactive to light. ENT: Pharynx normal. Neck: Normal inspection. Neck supple. No lymph nodes noted. No crepitus CVS: Normal heart rate and rhythm. Pulses normal. Normal S1 and S2 Respiratory: No respiratory distress. Breath sounds normal. No Wheezing. No rales Abdomen: Soft and nontender. No rigidity. No distention. good BS x4 Skin: Skin warm and dry. Normal skin color. Normal skin turgor. Extremities: No lower extremity edema. Neurovascular intact to all extremities. No Lacerations. No Rash Neuro: Oriented X 3. No motor deficit. No sensory deficit. Moving all extermities. No slurred speech MDM - Neuro Symptoms/Deficit MDM Narrative Medical decision making narrative: Patient neurologically intact at this time. Well appearing. Symptoms happened yesterday approximately 22 hours prior. Lasted for approximately 5 minutes. Has completely resolved. Similar episode happened in November. Question TIA. Patient has a history of cardiomyopathy. History of proven coronary disease status post cardiac catheterization. We will go ahead and get carotid Dopplers. We will get baseline CT scan of the head. Electrolytes. Will check patient's sugar. EKG pending. In stable condition. Patient's urine showed a possible UTI versus contamination. We will go ahead and give some antibiotic ear 1 g Rocephin was given. The Doppler of the carotid were negative for any obstructive picture. Patient's electrolytes unremarkable. Symptoms have been over 24 hours ago. Will discuss with Neurology about follow-up on an outpatient basis. Additional mass was noted on the chest x-ray it was a 2.8 cm mass in the right lower lobe. A copy of the x-ray report was given to patient. Follow-up required to rule out possibility of malignancy. Family and patient states understanding. Currently in stable condition. After discussion with neurology will discharge patient home with close follow-up. Lab Data Result diagrams: 04/10/21 13:26 04/10/21 13:26 Labs: Lab Results 04/10/21 04/10/21 04/10/21 Range/Units 13:26 13:26 13:26 WBC 8.2 (4.8-10.8) X10*3/uL RBC 3.26 L (4.20-5.50) X10*6/uL Hgb 11.1 L (12.0-16.0) g/dl Hct 33.3 L (37-47) % MCV 102.1 H (80-98) fL MCH 34.0 H (27.0-33.0) pg MCHC 33.3 (31.0-35.0) g/dl RDW 12.4 (11.0-16.0) % Plt Count 255 D (160-400) X10*3/uL MPV 9.2 L (9.4-12.3) fL Immature Gran % (Auto) 0.2 (0.0-0.4) % Neut % (Auto) 54.5 (45-73) % Lymph % (Auto) 26.7 (20-40) % Baxter % (Auto) 9.7 (2-11) % Eos % (Auto) 8.3 H (0-4) % Baso % (Auto) 0.6 (0-2) % Lymph # (Auto) 2.2 (1.2-4.9) X10*3/uL Baxter # (Auto) 0.8 (0.1-1.2) X10*3/uL Eos # (Auto) 0.7 H (0.0-0.4) X10*3/uL Baso # (Auto) 0.1 (0.0-0.2) X10*3/uL Abs Immat Gran (auto) 0.02 (0.00-0.03) X10*3/uL Absolute Neuts (auto) 4.5 (2.0-8.3) X10*3/uL Absolute Nucleated RBC 0.000 (0.0-0.012) X10*3/uL Nucleated RBC % (auto) 0.0 (0.0-0.2) /100WBC PT 10.9 (9.9-13.0) SEC INR 1.0 (0.9-1.1) Sodium 132 L (135-145) mmol/L Potassium 4.9 (3.3-5.1) mmol/L Chloride 98 (96-108) mmol/L Carbon Dioxide 25 (22-29) mmol/L Anion Gap 14 (12-20) BUN 17 H (9-16) mg/dL Creatinine 0.63 (0.5-1.4) mg/dL Estim Creat Clear Calc 63.3 Estimated GFR > 60 Random Glucose 91 (60-115) mg/dL Calcium 8.9 (8.4-10.2) mg/dL Troponin I High Sens (<3.5-17.0) ng/L Hold Red Top Urine Color Urine Appearance Urine pH (5.0-8.0) Ur Specific [place] (1.005-1.025) Urine Protein (NEG-TRACE) MG/DL Urine Glucose (UA) (NEG) MG/DL Urine Ketones (NEG) MG/DL Urine Blood (NEG) Urine Nitrite (NEG) Ur Leukocyte Esterase (NEG) Urine RBC (0) /HPF Urine WBC (0-4) /HPF Ur Squamous Epith Cells /LPF Urine Bacteria /LPF Ethyl Alcohol mg/dL 04/10/21 04/10/21 04/10/21 Range/Units 13:26 13:26 13:26 WBC (4.8-10.8) X10*3/uL RBC (4.20-5.50) X10*6/uL Hgb (12.0-16.0) g/dl Hct (37-47) % MCV (80-98) fL MCH (27.0-33.0) pg MCHC (31.0-35.0) g/dl RDW (11.0-16.0) % Plt Count (160-400) X10*3/uL MPV (9.4-12.3) fL Immature Gran % (Auto) (0.0-0.4) % Neut % (Auto) (45-73) % Lymph % (Auto) (20-40) % Baxter % (Auto) (2-11) % Eos % (Auto) (0-4) % Baso % (Auto) (0-2) % Lymph # (Auto) (1.2-4.9) X10*3/uL Baxter # (Auto) (0.1-1.2) X10*3/uL Eos # (Auto) (0.0-0.4) X10*3/uL Baso # (Auto) (0.0-0.2) X10*3/uL Abs Immat Gran (auto) (0.00-0.03) X10*3/uL Absolute Neuts (auto) (2.0-8.3) X10*3/uL Absolute Nucleated RBC (0.0-0.012) X10*3/uL Nucleated RBC % (auto) (0.0-0.2) /100WBC PT (9.9-13.0) SEC INR (0.9-1.1) Sodium (135-145) mmol/L Potassium (3.3-5.1) mmol/L Chloride (96-108) mmol/L Carbon Dioxide (22-29) mmol/L Anion Gap (12-20) BUN (9-16) mg/dL Creatinine (0.5-1.4) mg/dL Estim Creat Clear Calc Estimated GFR Random Glucose (60-115) mg/dL Calcium (8.4-10.2) mg/dL Troponin I High Sens 10.3 (<3.5-17.0) ng/L Hold Red Top See Note Urine Color Urine Appearance Urine pH (5.0-8.0) Ur Specific [place] (1.005-1.025) Urine Protein (NEG-TRACE) MG/DL Urine Glucose (UA) (NEG) MG/DL Urine Ketones (NEG) MG/DL Urine Blood (NEG) Urine Nitrite (NEG) Ur Leukocyte Esterase (NEG) Urine RBC (0) /HPF Urine WBC (0-4) /HPF Ur Squamous Epith Cells /LPF Urine Bacteria /LPF Ethyl Alcohol < 10 mg/dL 04/10/21 Range/Units 14:31 WBC (4.8-10.8) X10*3/uL RBC (4.20-5.50) X10*6/uL Hgb (12.0-16.0) g/dl Hct (37-47) % MCV (80-98) fL MCH (27.0-33.0) pg MCHC (31.0-35.0) g/dl RDW (11.0-16.0) % Plt Count (160-400) X10*3/uL MPV (9.4-12.3) fL Immature Gran % (Auto) (0.0-0.4) % Neut % (Auto) (45-73) % Lymph % (Auto) (20-40) % Baxter % (Auto) (2-11) % Eos % (Auto) (0-4) % Baso % (Auto) (0-2) % Lymph # (Auto) (1.2-4.9) X10*3/uL Baxter # (Auto) (0.1-1.2) X10*3/uL Eos # (Auto) (0.0-0.4) X10*3/uL Baso # (Auto) (0.0-0.2) X10*3/uL Abs Immat Gran (auto) (0.00-0.03) X10*3/uL Absolute Neuts (auto) (2.0-8.3) X10*3/uL Absolute Nucleated RBC (0.0-0.012) X10*3/uL Nucleated RBC % (auto) (0.0-0.2) /100WBC PT (9.9-13.0) SEC INR (0.9-1.1) Sodium (135-145) mmol/L Potassium (3.3-5.1) mmol/L Chloride (96-108) mmol/L Carbon Dioxide (22-29) mmol/L Anion Gap (12-20) BUN (9-16) mg/dL Creatinine (0.5-1.4) mg/dL Estim Creat Clear Calc Estimated GFR Random Glucose (60-115) mg/dL Calcium (8.4-10.2) mg/dL Troponin I High Sens (<3.5-17.0) ng/L Hold Red Top Urine Color YELLOW Urine Appearance HAZY Urine pH 6.0 (5.0-8.0) Ur Specific [place] 1.010 (1.005-1.025) Urine Protein NEG (NEG-TRACE) MG/DL Urine Glucose (UA) NEG (NEG) MG/DL Urine Ketones NEG (NEG) MG/DL Urine Blood NEG (NEG) Urine Nitrite NEG (NEG) Ur Leukocyte Esterase 2+ H (NEG) Urine RBC 0 (0) /HPF Urine WBC 50-75 H (0-4) /HPF Ur Squamous Epith Cells 3+ /LPF Urine Bacteria 4+ /LPF Ethyl Alcohol mg/dL NIH Stroke Scale Internal: Initial- Upon Arrival Time: 12:12 Level of Consciousness: Alert Level of Consciousness Questions: Answers both questions correctly Level of Consciousness Commands: Performs both tasks correctly Best Gaze: Normal Visual: No visual loss Facial Palsy: Normal Motor Arm (Right): No drift Motor Arm (Left): No drift Motor Leg (Right): No drift Motor Leg (Left): No drift Limb Ataxia: Absent Sensory: Normal Best Language: No aphasia Dysarthia: Normal Extinction and Inattention: No abnormality Score: 0 Discharge Plan Discharge Clinical Impression: Transient cerebral ischemia, Urinary tract infection Patient Disposition: Home, Self-Care Instructions: Transient Ischemic Attack (ED), Urinary Tract Infection in Women (ED) Additional Instructions: A mass was found in your right lung. A follow-up CT scan of the chest is needed to rule out malignancy. Please make sure you follow-up with your primary physician. Prescriptions: New sulfamethoxazole-trimethoprim [Bactrim DS] 800-160 mg tablet 1 tab PO BID 7 Days Qty: 14 RF: 0 No Action amoxicillin 500 mg tablet 500 mg PO ONCE 1 Days Qty: 4 RF: 3 atorvastatin 40 mg tablet 40 mg PO BEDTIME 30 Days Qty: 30 RF: 5 acetaminophen 325 mg Tablet 650 mg PO Q6H PRN (Reason: Pain, Mild (Pain Scale 1-3)) 30 Days Qty: 240 RF: 0 cranberry 500 mg capsule 1,000 mg PO BID RF: 0 carvedilol 6.25 mg tablet 6.25 mg PO BID Qty: 90 RF: 3 aspirin [Adult Low Dose Aspirin] 81 mg tablet,delayed release (DR/EC) 81 mg PO DAILY RF: 0 Referrals: Gurpreet Castellon MD [Physician] - 2 days
[2021-04-10 13:31] LABS: MANUAL DIFF FLAG NO
[2021-04-10 13:34] LABS: Basophils Absolute Auto 0.1 X10*3/uL (0.0-0.2); Basophils Percent Auto 0.6 % (0-2); Eosinophils Absolute Auto 0.7 X10*3/uL (0.0-0.4); Eosinophils Percent Auto 8.3 % (0-4); Hematocrit 33.3 % (37-47); Hemoglobin 11.1 g/dl (12.0-16.0); Imm Gran Abs Auto 0.02 X10*3/uL (0.00-0.03); Imm Gran Pct Auto 0.2 % (0.0-0.4); Lymphocytes Absolute Auto 2.2 X10*3/uL (1.2-4.9); Lymphocytes Percent Auto 26.7 % (20-40); Mean Corpuscular HGB Conc 33.3 g/dl (31.0-35.0); Mean Corpuscular Volume 102.1 fL (80-98); Mean Platelet Volume 9.2 fL (9.4-12.3); Monocytes Absolute Auto 0.8 X10*3/uL (0.1-1.2); Monocytes Percent Auto 9.7 % (2-11); Neutrophils Absolute Auto 4.5 X10*3/uL (2.0-8.3); Neutrophils Percent Auto 54.5 % (45-73); Platelet Count 255 X10*3/uL (160-400); Red Blood Count 3.26 X10*6/uL (4.20-5.50); Red Cell Distribution Width 12.4 % (11.0-16.0); White Blood Count 8.2 X10*3/uL (4.8-10.8)
[2021-04-10 13:38] LABS: Prothrombin Time 10.9 SEC (9.9-13.0)
[2021-04-10 13:45] LABS: Ethanol < 10 mg/dL
[2021-04-10 13:47] LABS: Anion Gap 14 (12-20); Blood Urea Nitrogen 17 mg/dL (9-16); Calcium 8.9 mg/dL (8.4-10.2); Carbon Dioxide 25 mmol/L (22-29); Chloride 98 mmol/L (96-108); Creatinine Clr Calc Pharmacy 63.3; Estimated Glomerular Filt Rate > 60; Glucose Random 91 mg/dL (60-115); Potassium 4.9 mmol/L (3.3-5.1); Sodium 132 mmol/L (135-145)
[2021-04-10 13:53] LABS: Troponin-I High Sensitivity 10.3 ng/L (<3.5-17.0)
[2021-04-10 14:38] LABS: Appearance Urine HAZY; Color Urine YELLOW; Glucose Urine UA NEG (NEG); Leukocyte Esterase Urine 2+ (NEG); Nitrite Urine NEG (NEG); UACC Culture Trigger YES; Urine Blood NEG (NEG); Urine Ketones NEG (NEG); Urine Protein NEG (NEG-TRACE)
[2021-04-10 14:53] LABS: Bacteria Urine 4+ /LPF; RBC Urine 0 /HPF (0); Squamous Epithelial Cell Urine 3+ /LPF; WBC Urine 50-75 /HPF (0-4)
[2021-04-10] MEDS: Sulfamethox/Trimeth 800/160 TABLET 1 TAB PO (15:26)
== END 2021-04-10 15:33 | disposition home or self-care (01) ==
PROVIDERS: Emergency Provider Emergency Medicine Emergency Medical Services; PCP Hospitalist
DX: G45.9 Transient cerebral ischemic attack, unspecified (principal); N39.0 Urinary tract infection, site not specified; R47.81 Slurred speech; R21 Rash and other nonspecific skin eruption; R41.82 Altered mental status, unspecified; R29.700 NIHSS score 0; Z79.82 Long term (current) use of aspirin; Z79.899 Other long term (current) drug therapy
CPT/HCPCS: 36415; 70450; 71045; 80048; 81001; 82077; 84484; 85025; 85610; 87086; 87088; 87186; 93880; 99283; 99284

== ENCOUNTER → 2021-04-17 08:17 | Outpatient (BNVA) | payer MEDICARE, SELFPAY | PROVIDERS: PCP Hospitalist; Visit Provider Internal Medicine | DX: M53.3 Sacrococcygeal disorders, not elsewhere classified (principal); G89.29 Other chronic pain; T84.032A Mechanical loosening of internal right knee prosthetic joint, initial encounter; T84.84XA Pain due to internal orthopedic prosthetic devices, implants and grafts, initial encounter; I44.7 Left bundle-branch block, unspecified; Z96.651 Presence of right artificial knee joint; Z98.890 Other specified postprocedural states | CPT/HCPCS: 99212 ==

== ENCOUNTER → 2021-05-06 10:12 | Outpatient (BNVA) | payer MEDICARE, SELFPAY | PROVIDERS: PCP Hospitalist; Referring Provider Hospitalist; Visit Provider Internal Medicine Cardiovascular Disease | DX: I42.9 Cardiomyopathy, unspecified (principal); I44.7 Left bundle-branch block, unspecified; I20.8 Other forms of angina pectoris | CPT/HCPCS: 99212 ==

== ENCOUNTER 2021-07-06 09:28 | Outpatient (REF) | payer MEDICARE, SELFPAY ==
--- NOTE | ~2021-07-06 | XR_ITS ---
EXAMINATION: KNEE X-RAY CLINICAL INFORMATION: Pain COMPARISON: Previous x-ray December 2020 TECHNIQUE: Standing AP view of both knees and lateral and sunrise view of the right knee FINDINGS: Right knee: There is slight valgus angulation at the right knee joint that appears new or more prominent compared to previous exam. There is a hinged right knee replacement in satisfactory position. There is question of increasing lucency adjacent to the medial and lateral femoral and medial tibial component. There is a small knee joint effusion that appears unchanged. Standing AP view of the left knee demonstrates several lucencies in the distal femoral shaft. These appear unchanged from prior exams. XR/XR knee standing BI IMPRESSION: Right knee replacement. Question increased valgus angulation at the right knee and increasing lucency adjacent to the medial and lateral aspects of the femoral component and medial tibial component. Stable lucencies in the distal femoral shaft of the left knee.
--- NOTE | ~2021-07-06 | XR_ITS ---
EXAMINATION: KNEE X-RAY CLINICAL INFORMATION: Pain COMPARISON: Previous x-ray December 2020 TECHNIQUE: Standing AP view of both knees and lateral and sunrise view of the right knee FINDINGS: Right knee: There is slight valgus angulation at the right knee joint that appears new or more prominent compared to previous exam. There is a hinged right knee replacement in satisfactory position. There is question of increasing lucency adjacent to the medial and lateral femoral and medial tibial component. There is a small knee joint effusion that appears unchanged. Standing AP view of the left knee demonstrates several lucencies in the distal femoral shaft. These appear unchanged from prior exams. XR/XR knee RT 2V IMPRESSION: Right knee replacement. Question increased valgus angulation at the right knee and increasing lucency adjacent to the medial and lateral aspects of the femoral component and medial tibial component. Stable lucencies in the distal femoral shaft of the left knee.
== END 2021-07-06 09:29 | disposition home or self-care (01) ==
LOC: HO.HOSX 09:28
PROVIDERS: PCP Hospitalist; Visit Provider Orthopaedic Surgery
DX: Z96.651 Presence of right artificial knee joint (principal)
CPT/HCPCS: 73560; 73565; 99212

== ENCOUNTER 2021-07-30 08:33 | Outpatient (REF) | payer MEDICARE, SELFPAY ==
--- NOTE | ~2021-07-30 | XR_ITS ---
EXAMINATION: XR KNEE AP STANDING, BILATERAL XR KNEE, RIGHT CLINICAL INFORMATION: Pain. COMPARISON: Knee radiographs dated 07/06/2021. TECHNIQUE: Standing AP view of both knees and lateral and sunrise views of the right knee. FINDINGS: RIGHT KNEE: Hinged right knee arthroplasty. Unchanged anatomic alignment with mild valgus angulation of the right knee, similar when compared to the prior examination. No significant perihardware lucency to suggest loosening or infection. No acute hardware or osseous fracture. No significant joint effusion. LEFT KNEE: Tiny lateral compartment marginal osteophytes. No concerning lytic or blastic osseous lesion. No acute fracture or dislocation. Faint lucency within the distal femur appears unchanged. XR/XR knee RT 2V IMPRESSION: Right knee: Hinged right knee arthroplasty without perihardware lucency to suggest loosening or infection. No hardware or osseous fracture. Mild valgus angulation which may be positional, unchanged. Left knee: Mild lateral compartment osteoarthritis, unchanged.
--- NOTE | ~2021-07-30 | XR_ITS ---
EXAMINATION: XR KNEE AP STANDING, BILATERAL XR KNEE, RIGHT CLINICAL INFORMATION: Pain. COMPARISON: Knee radiographs dated 07/06/2021. TECHNIQUE: Standing AP view of both knees and lateral and sunrise views of the right knee. FINDINGS: RIGHT KNEE: Hinged right knee arthroplasty. Unchanged anatomic alignment with mild valgus angulation of the right knee, similar when compared to the prior examination. No significant perihardware lucency to suggest loosening or infection. No acute hardware or osseous fracture. No significant joint effusion. LEFT KNEE: Tiny lateral compartment marginal osteophytes. No concerning lytic or blastic osseous lesion. No acute fracture or dislocation. Faint lucency within the distal femur appears unchanged. XR/XR knee standing BI IMPRESSION: Right knee: Hinged right knee arthroplasty without perihardware lucency to suggest loosening or infection. No hardware or osseous fracture. Mild valgus angulation which may be positional, unchanged. Left knee: Mild lateral compartment osteoarthritis, unchanged.
== END 2021-07-30 08:34 | disposition home or self-care (01) ==
LOC: HO.HOSX 08:33
PROVIDERS: Visit Provider Orthopaedic Surgery
DX: Z47.89 Encounter for other orthopedic aftercare (principal); Z96.651 Presence of right artificial knee joint
CPT/HCPCS: 73560; 73565; 99212

== ENCOUNTER → 2021-09-10 13:08 | Outpatient (BNVA) | payer MEDICARE, SELFPAY | PROVIDERS: PCP Hospitalist; Visit Provider Orthopaedic Surgery | DX: T84.84XA Pain due to internal orthopedic prosthetic devices, implants and grafts, initial encounter (principal); Z96.659 Presence of unspecified artificial knee joint | CPT/HCPCS: 99212 ==

== ENCOUNTER → 2021-09-18 11:51 | Outpatient (BNVA) | payer MEDICARE, SELFPAY | PROVIDERS: PCP Hospitalist; Visit Provider Internal Medicine | DX: M25.561 Pain in right knee (principal); Z96.651 Presence of right artificial knee joint | CPT/HCPCS: Q3014 ==

== ENCOUNTER → 2021-09-24 14:07 | Outpatient (BNVA) | payer MEDICARE, SELFPAY | PROVIDERS: PCP Hospitalist; Referring Provider Hospitalist; Visit Provider Nurse Practitioner Family | DX: I25.10 Atherosclerotic heart disease of native coronary artery without angina pectoris (principal); I42.9 Cardiomyopathy, unspecified; I44.7 Left bundle-branch block, unspecified; Z98.890 Other specified postprocedural states | CPT/HCPCS: 99212 ==

== ENCOUNTER → 2022-03-22 10:29 | Outpatient (REF) | payer MEDICARE, SELFPAY ==
--- NOTE | 2022-03-22 10:45 | CA_ITS ---
Transthoracic Echocardiogram Patient (Last, First, Middle): Loni Jaimes M Gender: Female Date of : 1940 Age: 82 Procedure Date: 03/22/2022 Procedure Type: Transthoracic Echocardiogram Location: OP Height: 165.1 cm Weight: 70.31 kg BSA: 1.78 m2 Heart Rate: bpm BP: 132 / 70 mmHg Flipping Machine Operator: NADEEN Referring MD: Mark Adams MD Symptoms: I44.7 - Left bundle-branch block, unspecified Study Quality: Fair/contrast Conclusions: - Normal left ventricular cavity size. There is mildly increased left ventricular wall thickness. The left ventricular systolic function is low normal. The visually estimated ejection fraction is between 50-55%. - E/E prime ratio is >15, consistent with elevated filling pressures. - Normal right ventricular cavity size and systolic function. Findings Procedure Information Contrast agent, definity, is being given per protocol without apparent complications. Left Ventricle Normal left ventricular cavity size. There is mildly increased left ventricular wall thickness. The left ventricular systolic function is low normal. The visually estimated ejection fraction is between 50-55%. There is no evidence of regional wall motion abnormalities. Abnormal diastolic function is noted. Spectral Doppler is indicative of an impaired relaxation filling pattern. E/E prime ratio is >15, consistent with elevated filling pressures. Right Ventricle Normal right ventricular cavity size and systolic function. Atria The left atrium is mildly dilated. Aortic Valve Normal aortic valve structure and function. There is no aortic valve stenosis. There is no aortic valve regurgitation. Mitral Valve The mitral valve appears normal. There is moderate mitral valve regurgitation. There is no mitral valve stenosis. Pulmonic Valve Normal pulmonic valve structure and function. There is trace pulmonic valve regurgitation. Tricuspid Valve Normal tricuspid valve structure. There is trace tricuspid valve regurgitation. Normal right atrial pressure. There is no evidence of pulmonary hypertension. Great Vessels The pulmonary artery was not well visualized. There is mild dilatation of the ascending aorta measuring 3.60 cm. Venous The inferior vena cava is normal in size and collapses greater than 50% with inspiration. Pericardium/Pleural There is no evidence of pericardial effusion. Prior Study Comparison No significant change compared to prior study dated: 03/09/2021. Measurements 2D Linear Measurements IVSd: 1.20 0.6-0.9/0.6-1.0 cm LVIDd: 4.41 3.9-5.3/4.2-5.9 cm LVIDd Index: 2.48 2.4-3.2/2.2-3.1 cm/m2 LVPWd: 1.02 0.7-1.1 cm LV Mass: 213.89 67-162/88-224 g LV Mass Index: 120.17 43-95/49-115 g/m2 LVOT Diam: 2.00 3.0+(-)1.3 cm 2D Systolic Function EF 4C: 40.00 >55% EF 2C: 46.60 >55% Mitral Valve MV Pk E: 1.06 MV PK A: 1.16 MV Decel Time: 174.00 E/A: 0.90 E'Lateral: 6.42 E'Medial: 5.87 E/E' Med: 18.10 E/E' Lat: 16.50 PHT: 51.00 MVA PHT: 4.31 Decel [place]: 6.10 MR Vol - PW Dopp: 7.28 MR VTI: 1.82 MR ERO: 4.00 MR Alias Jeremy: 0.38 MR RAD: 0.30 Aortic Valve AoV Pk Jeremy: 1.00 AoV Mn Jeremy: 0.77 AoV VTI: 0.25 AoV Pk Grad: 4.00 Aov Mn Grad: 3.00 EDEN Cont.VTI: 2.45 LVOT LVOT Pk Jeremy: 0.78 LVOT Mn Jeremy: 0.58 LVOT VTI: 0.19 LVOT Pk Grad: 2.00 LVOT Mn Grad: 1.00 LVOT Diam: 2.00 LVOT Area: 3.14 Diastolic Function MV Pk E: 1.06 MV Pk A: 1.16 E/A: 0.90 E'Medial: 5.87 E/E' Med: 18.10 E' Laterial: 6.42 E/E' Lat: 16.50 Right Ventricle TAPSE (mm): 24.30 TVS' Jeremy: 10.70 Tricuspid Valve TR Pk Jeremy: 2.82 TR Pk Grad: 32.00 RA Press: 3.00 RVSP: 35.00 Great Vessels Aorta Sinus of Valsalva: 3.56 2.0-3.[address] [place]: 2.81 1.7-3.4 cm Ao Asc: 3.60 2.1-3.4 cm Updated in Other Vendor System with Status of Final Mark Adams MD electronically signed on 03/22/2022 1:44:51 PM with status of Final
== END ==
LOC: HO.CARD 10:29
PROVIDERS: PCP Internal Medicine; Visit Provider Internal Medicine Cardiovascular Disease
DX: I44.7 Left bundle-branch block, unspecified (principal)
CPT/HCPCS: 93306; Q9957

== ENCOUNTER → 2022-03-31 12:34 | Outpatient (BNVA) | payer MEDICARE, SELFPAY | PROVIDERS: PCP Internal Medicine; Visit Provider Internal Medicine Cardiovascular Disease | DX: I25.118 Atherosclerotic heart disease of native coronary artery with other forms of angina pectoris (principal); I44.7 Left bundle-branch block, unspecified; Z98.61 Coronary angioplasty status; Z98.890 Other specified postprocedural states | CPT/HCPCS: 93005; 99212 ==

== ENCOUNTER → 2022-07-19 11:19 | Outpatient (BNVA) | payer MEDICARE, SELFPAY | PROVIDERS: PCP Internal Medicine; Visit Provider Internal Medicine Cardiovascular Disease | DX: I20.8 Other forms of angina pectoris (principal); I44.7 Left bundle-branch block, unspecified | CPT/HCPCS: 99212 ==

== ENCOUNTER 2023-04-01 13:36 | Emergency (ER) | payer MEDICARE, SELFPAY ==
[2023-04-01 13:58] VITALS: BP 134/29; PULSE 92; RESP 18; O2SAT 98; BMI 25.0
--- NOTE | 2023-04-01 13:58 | ED.FALL ---
HPI - Fall General Chief Complaint: Fall Stated Complaint: L Hip Pain Bump on Head S/P Fall 03/31/23 Time Seen by Provider: 04/01/23 17:27 Source: patient Mode of arrival: ambulatory History of Present Illness HPI Narrative: 83-year-old female presents with having fallen at approximately 04:00 this morning when she attempted to get out of her recliner and states that sometimes her right leg gives out on her and states that she did fall onto her right side without loss of consciousness. Patient did attempts to pull herself up on a piece of furniture but was unable to, she did press the life lowered button and was evaluated by EMS at 05:00 but states that she did not feel she needed to come into the emergency room. She then went to bed, woke up this morning and prepared breakfast for herself as usual denies any visual changes, dizziness but her family was concerned and instructed her to come to the emergency room. Related Data Previous Rx's Medication Instructions Recorded acetaminophen 325 mg tablet 650 mg (2 x 325 mg) PO Q6H PRN 07/23/20 Pain, Mild (Pain Scale 1-3) 30 days #240 tabs aspirin 81 mg tablet,delayed 81 mg PO DAILY #100 tabs 07/19/22 release carvedilol 3.125 mg tablet 3.125 mg PO BID #120 tabs 07/19/22 rosuvastatin 5 mg tablet (Crestor) 5 mg PO DAILY #90 tabs 07/19/22 cefdinir 300 mg capsule 300 mg PO BID 5 days #10 caps 04/01/23 Allergies Allergy/AdvReac Type Severity Reaction Status Date / Time lisinopril AdvReac Intermediate Hyperkalemi Verified 07/19/22 11:28 a Review of Systems Review of Systems: Pertinent positives and negatives as stated in HPI [facility] Past Medical History Source: nursing notes reviewed Medical History Atherosclerotic cardiovascular disease Alcohol abuse Recent urinary tract infection Mechanical loosening of internal right knee prosthetic joint Right knee pain Surgical History Status post cardiac catheterization (~08/2020) Cataract extraction status of left eye History of total right hip arthroplasty History of right knee surgery Social History Social History Are you a primary team primary care physician to a significant other at home: No Do you presently have visiting nurse or other home services: No Alcohol intake: former Patient Tobacco Use Status: Never used Tobacco Smoked in Last 30 Days: No Second Hand Smoke Exposure: No Use of substances other than those prescribed or required for medical reasons: No Advance Directives: Yes Advance Directives Information Provided: No Advance Directives on File: No service: No Current occupational status: retired Current occupation: rt hand Physical Exam Vital Signs: Vital Signs: Last Vital Signs Temp 97.9 F 04/01/23 20:25 Pulse 76 04/01/23 20:25 Resp 16 04/01/23 20:25 BP 142/61 H 04/01/23 20:25 Pulse Ox 98 04/01/23 20:25 O2 Del Method Room Air 04/01/23 20:25 BMI result Body Mass Index 25.0 VITAL SIGNS: Reviewed. GENERAL: Well developed, well nourished, in no acute distress. HEAD: Normocephalic/scalp contusion to the right parietal EYES: PERRLA, EOMI EARS: Ext canals without abnormality NOSE: Nares patent bilateral OROPHARYNX: no oral lesions noted, posterior pharynx clear NECK: Supple, no adenopathy LUNGS: Normal breath sounds. No adventitious sounds or accessory muscle use. SpO2<98> CARDIOVASCULAR: Regular rate and rhythm without noted murmurs, no JVD or lower extremity edema. ABDOMEN: Soft, non-tender, non-distended with bowel sounds. PELVIS: Stable, nontender MUSCULOSKELETAL: No tenderness, deformities, or effusions noted on gross inspection. EXTREMITIES: No cyanosis, clubbing or edema. SKIN: Inspection of the skin reveals no rashes, NEUROLOGIC: Alert and oriented x 4. Strength and sensation to light touch were grossly intact x 4, no facial asymmetry, no pronator drift, cranial nerves 2-12 are grossly intact. Course Course Course Narrative: This is an RME: Additional HPI, ROS, PE not included below will be deferred to primary provider. Patient is an 83-year-old female who presents emergency department for evaluation after above. Last night she fell asleep in the chair in the living room upon attempting to get to her bedroom she subsequently fell landing backwards on to her head. Denies LOC. she is anticoagulated with Eliquis. She states that she was ?crawling around on the floor for hours? before she finally pressed her Life Alert and was assisted to bed by EMS. Endorses a posterior headache, and left hip pain that is worse with weight-bearing. Denies patient vision changes, neck pain, chest pain, abdominal pain. Plan: CT head, hip XR, labs Medications Administered Discontinued Medications Generic Name Dose Route Start Last Admin Trade Name Catherine PRN Reason Stop Dose Admin Acetaminophen 975 mg 04/01/23 17:32 04/01/23 17:44 Acetaminophen 325 Mg Tablet PO 04/01/23 17:33 975 mg ONCE ONE Administration Sodium Chloride 500 mls @ 999 mls/hr 04/01/23 18:00 04/01/23 19:07 Ns IV 04/01/23 18:30 999 mls/hr .Q31M BRENDAN Administration Ceftriaxone Sodium 1 gm/ 50 mls @ 100 mls/hr 04/01/23 20:18 04/01/23 20:45 Sodium Chloride IV 04/01/23 20:47 100 mls/hr ONCE ONE Administration Lidocaine 1 patch 04/01/23 17:32 04/01/23 17:44 Lidocaine 4 % Patch Adh..Patch TRANSDERMA 04/01/23 17:33 1 patch ONCE ONE Administration Protocol Medical Decision Making Medical Decision Making MDM Narrative: 83-year-old female with history and clinical presentation, DDX: Intracranial hemorrhage, pelvic fracture, musculoskeletal pain with ecchymosis. I reviewed all investigations and hematologic indices are chronically stable without leukocytosis or left shift, there is a stable macrocytic anemia without thrombocytopenia. Patient is on Eliquis and coagulation studies demonstrated PT-14, INR-1.2. On chemistry indices patient has a distribution of low sodium as well as chloride suggesting a component poor p.o. intake and there is a corresponding elevation of potassium-5.5. Otherwise, there is no DALE and liver enzymes are grossly within normal limits. There is a mildly elevated CPK consistent with contusions hand inability to get off the floor immediately. Patient received 500 cc of normal saline. CT scan was negative for intracranial hemorrhage. Hip/pelvis x-ray negative for fracture dislocation. Urinalysis is consistent with urinary tract infection, patient received initial antibiotics here in the emergency room and will be discharged on remaining course. Repeat chemistry studies demonstrate a resolved potassium level and improvement sodium and chloride levels. She is otherwise discharged home. Differential Diagnosis Differential Diagnoses: The differential diagnosis associated with the presentation includes Please see the discussion above Admission/Observation Consideration of admission/observation: Escalation of care including admission/observation considered Please see the discussion above Lab Data MDM Lab Attestation statement: I reviewed the patient's lab results. Please see the discussion above 04/01/23 15:12 04/01/23 20:44 Labs: Lab Results 04/01/23 04/01/23 04/01/23 Range/Units 15:12 19:41 20:44 WBC 7.7 (4.8-10.8) X10*3/uL RBC 3.36 L (4.20-5.50) X10*6/uL Hgb 11.2 L (12.0-16.0) g/dl Hct 33.1 L (37.0-47.0) % MCV 98.5 H (80.0-98.0) fL MCH 33.3 H (27.0-33.0) pg MCHC 33.8 (31.0-35.0) g/dl RDW 13.1 (11.0-16.0) % Plt Count 300 (160-400) X10*3/uL MPV 8.9 L (9.4-12.3) fL Immature Gran % (Auto) 0.3 (0.0-0.4) % Neut % (Auto) 68.2 (45-73) % Lymph % (Auto) 19.5 L (20-40) % [place] % (Auto) 9.8 (2-11) % Eos % (Auto) 1.8 (0-4) % Baso % (Auto) 0.4 (0-2) % Lymph # (Auto) 1.5 (1.2-4.9) X10*3/uL [place] # (Auto) 0.8 (0.1-1.2) X10*3/uL Eos # (Auto) 0.1 (0.0-0.4) X10*3/uL Baso # (Auto) 0.0 (0.0-0.2) X10*3/uL Abs Immat Gran (auto) 0.02 (0.00-0.03) X10*3/uL Absolute Neuts (auto) 5.2 (2.0-8.3) x10*3/uL Absolute Nucleated RBC 0.000 (0.0-0.012) X10*3/uL Nucleated RBC % (auto) 0.0 (0.0-0.2) /100WBC PT 14.0 H (11.1-13.3) SEC INR 1.2 H (0.9-1.1) Sodium 129 L 132 L (135-145) mmol/L Potassium 5.5 H 4.6 (3.3-5.1) mmol/L Chloride 94 L 95 L (96-108) mmol/L Carbon Dioxide 24 25 (22-29) mmol/L Anion Gap 17 17 (12-20) BUN 20 H 20 H (9-16) mg/dL Creatinine 0.81 0.79 (0.5-1.4) mg/dL Estim Creat Clear Calc 47.5 48.7 Estimated GFR > 60 > 60 Random Glucose 111 102 (60-115) mg/dL Calcium 9.5 D 9.0 (8.4-10.2) mg/dL Total Bilirubin 0.8 (0.0-1.0) mg/dL AST 27 (5-31) U/L ALT 20 (0-31) U/L Alkaline Phosphatase 64 (39-117) U/L Total Creatine Kinase 262 H (26-140) U/L Total Protein 7.0 (6.5-8.0) g/dL Albumin 4.2 (3.5-5.0) g/dL Urine Color Yellow Urine Appearance Cloudy Urine pH 5.5 (5.0-9.0) Ur Specific [place] 1.015 (1.005-1.025) Urine Protein Negative (Neg-Trace) mg/dL Urine Glucose (UA) Negative (Negative) mg/dL Urine Ketones Negative (Negative) mg/dL Urine Blood Negative (Negative) Urine Nitrite Negative (Negative) Ur Leukocyte Esterase Large (3+) H (Negative) Urine RBC 0-2 (0-2) /HPF Urine WBC >50 H (0-5) /HPF Ur Squamous Epith Cells 6-10 (0-2) /HPF Urine Bacteria 4+ (None Seen) Hyaline Casts 6-10 (0-2) /LPF Radiology Impression Discussion of test interpretation with radiology: I have reviewed the radiologist's reading. Radiologist Impression: Please see the discussion above External Record Review External record reviewed: Outpatient record, Prior outpatient labs and Prior outpatient radiology Chronic Conditions Patient?s care impacted by: Other LBBB Critical Care Time Critical Care Time Critical Care Time: Yes Total Critical Care Time: 30 Attestation: I personally attest to this time spent taking care of the patient. Discharge Plan Discharge Clinical Impression: Hyperkalemia, Urinary tract infection Patient Disposition: Home, Self-Care Instructions: Urinary Tract Infection in Women (DC), Potassium Content of Foods List (ED), Hyperkalemia (ED), Urinary Tract Infection in Older Adults (ED) Additional Instructions: 1. Resume all home medications as prescribed. 2. Complete the entire course of antibiotics as prescribed. 3. Please follow-up with your primary care doctor on Tuesday morning. Return to the ER for any worsening symptoms. Prescriptions: New cefdinir 300 mg capsule 300 mg PO BID 5 Days Qty: 10 0RF No Action acetaminophen 325 mg Tablet 650 mg PO Q6H PRN (Reason: Pain, Mild (Pain Scale 1-3)) 30 Days Qty: 240 0RF aspirin 81 mg tablet,delayed release (DR/EC) 81 mg PO DAILY Qty: 100 4RF rosuvastatin [Crestor] 5 mg tablet 5 mg PO DAILY Qty: 90 4RF carvedilol 3.125 mg tablet 3.125 mg PO BID Qty: 120 3RF Rx Instructions: must administer with a meal/food Referrals: Keon Green MD [Primary Care Provider] -
[2023-04-01 17:32] VITALS: BP 137/57; PULSE 88; O2SAT 100
[2023-04-01 17:38] VITALS: BP 137/57; PULSE 81; RESP 18; O2SAT 98
[2023-04-01 20:25] VITALS: BP 142/61; PULSE 76; RESP 16; TEMP 36.6; O2SAT 98
--- NOTE | 2023-04-01 20:56 | PC.NURSE ---
IV rocephin ordered. No blood cultures drawn. Discussed with and per not necessary at this time.
== END 2023-04-01 21:45 | disposition home or self-care (01) ==
PROVIDERS: Emergency Provider Student in an Organized Health Care Education/Training Program; PCP Internal Medicine
DX: E87.5 Hyperkalemia (principal); N39.0 Urinary tract infection, site not specified; B96.20 Unspecified Escherichia coli [E. coli] as the cause of diseases classified elsewhere; R51.9 Headache, unspecified; M25.552 Pain in left hip; Z91.81 History of falling; I44.7 Left bundle-branch block, unspecified; I25.10 Atherosclerotic heart disease of native coronary artery without angina pectoris; Z79.82 Long term (current) use of aspirin; Z79.899 Other long term (current) drug therapy
CPT/HCPCS: 36415; 70450; 73502; 80048; 80053; 81001; 82550; 85025; 85610; 87086; 87088; 87186; 96374; 99284; 99285; J0696